=== PATIENT | female | born 1945 | race Caucasian/White ===

== ENCOUNTER 2016-11-25 09:11 | Outpatient (CLI) | payer MEDICARE ==
--- NOTE | 2016-11-25 11:01 | CT ---
CT OF THE LUMBAR SPINE: DATE: 02/26/16. COMPARISON: 09/05/13. HISTORY: Lumbar radiculopathy. TECHNIQUE: Serial axial CT imaging is obtained at 3 mm intervals from lower thoracic spine through the lower sa wilfrido without contrast. Coronal and sagittal reformatted imaging obtained. FINDINGS: Evaluation for central canal and/or neural foraminal stenosis is limited on routine CT. Incompletely imaged dorsal column stimulators are present, entering the central canal at the T12-L1 level. There is a stimulating lead associated with the S3 neural foramen on the left, incompletely imaged as well. Pedicle screws are present bilaterally at L3, L4, L5, and S1 with vertically oriented interlocking r ods. The bilateral pedicle screws demonstrate no evidence for a fracture. The pedicle screw at L3 on the left overlies the cortical bone and approaches the inferior margin of the intervertebral disk. The re is no lucency adjacent to any of the pedicle screws. No significant anterolisthesis or retrolisthesis is noted. There is mild lumbar dextroscoliosis valentina tered at the L3 level. T12-L1: There is disk space narrowing, primarily right-sided. No osseous cause of significant cent ral canal or neural foraminal stenosis. L1-2: There is disk space narrowing, degenerative end plate change, and anterior osteophyte formati on. Mild posterior osteophyte noted. Mild facet hypertrophy noted on the left. There is moderate facet hypertrophy on the right. Osteophyte encroachment on the right neural foramen causes a modera te degree of right neural foraminal stenosis. L2-3: There is disk space narrowing and disk desiccation. There is a disk-osteophyte complex causi ng at least moderate central canal stenosis. Bilateral facet hypertrophy present. No significant r ight neural foraminal stenosis. At least mild left neural foraminal stenosis. L3-4: There is disk space narrowing. There is partial facet joint fusion bilaterally. Mild bilate ral neural foraminal stenosis suspected, left greater than right. No significant central canal sten osis. L4-5: Intervertebral disk device present. There is facet joint fusion bilaterally. Mild bilateral neural foraminal stenosis suspected, left greater than right. Bilateral laminectomy changes are no petra. No osseous cause of significant central canal stenosis. L5-S1: Bilateral facet hypertrophy and partial facet joint fusion. No significant central canal or neural foraminal stenosis on the basis of an osseous cause. Bilateral laminectomy change present. There is scattered atherosclerotic calcification of the abdominal aorta and its branches. No acute fracture. IMPRESSION: Multilevel postoperative and degenerative change as detailed above. Evaluation for central canal an d/or neural foraminal stenosis is suboptimal on the basis of routine CT imaging. If clinically vincent anted, evaluation for central canal and/or neural foraminal stenosis could be better assessed via my elogram. POS: [facility]
== END 2016-11-25 09:12 | disposition home or self-care (01) ==
LOC: TBSIIMAG 09:11
PROVIDERS: ATTEND Neurological Surgery
DX: M47.26 Other spondylosis with radiculopathy, lumbar region (principal); Z98.890 Other specified postprocedural states
CPT/HCPCS: 72131

== ENCOUNTER 2016-12-16 13:09 | Outpatient (CLI) | payer MEDICARE ==
--- NOTE | 2016-12-16 17:06 | RAD ---
3 VIEW LUMBAR SPINE RADIOGRAPH SERIES: (3 LATERAL VIEWS PROVIDED) Date: 12/16/16 INDICATION: Lumbar radiculopathy. FINDINGS: Postoperative fusion spans the L3 through S1 segment without obvious hardware complication. No obvio us malalignment on the three provided lateral views. Flexion and extension are performed, which are distorted by component of patient motion. No obvious translational motion identified, although evalu ation is markedly limited on these views. IMPRESSION: Lateral views of the lumbar spine revealing no obvious malalignment by neutral positioning. Flexion/ extension views are limited due to details discussed above. POS: [facility]
== END 2016-12-16 13:10 | disposition home or self-care (01) ==
LOC: TBSIIMAG 13:09
PROVIDERS: ATTEND Neurological Surgery
DX: M54.16 Radiculopathy, lumbar region (principal)
CPT/HCPCS: 72100

== ENCOUNTER 2017-04-18 08:04 | Outpatient (CLI) | payer MEDICARE | END 2017-04-18 08:05 | disposition home or self-care (01) | LOC: BICMAMMO 08:04 | PROVIDERS: ATTEND Family Medicine | DX: Z13.820 Encounter for screening for osteoporosis (principal); Z78.0 Asymptomatic menopausal state; M85.80 Other specified disorders of bone density and structure, unspecified site | CPT/HCPCS: 77080 ==

== ENCOUNTER 2017-07-10 23:25 | Inpatient (IN) | payer MEDICARE ==
[2017-07-11] MEDS ORDERED: HYDROcodone/Acetaminophen 5/325 mg Tablet ONE (00:03)
[2017-07-11 00:24] LABS: #Basophils 0.1 thou/uL (0.0-0.2); #Eosinphils 0.2 thou/uL (0.0-0.7); #Lymphocytes 1.1 thou/uL (1.20-3.40); #Monocytes 0.9 thou/uL (0.11-0.59); #Neutrophils 4.9 thou/uL (1.40-6.50); %Basophils 1.2 % (0.0-1.0); %Eosinophils 2.5 % (0.0-10.0); %Lymphocytes 15.2 % (21.0-51.0); %Monocytes 12.5 % (0.0-10.0); %Neutrophils 68.6 % (42.0-75.0); Hemoglobin 13.2 g/dL (12.0-16.0); Mean Corpuscular HGB CONC 32.8 g/dL (32.0-36.0); Mean Corpuscular Volume 85.3 fl (81.0-99.0); Mean Platelet Volume 6.2 fL (7.4-10.4); Platelet Count 245 thou/uL (130-400); RBC Distribution Width 14.1 % (11.5-14.5); Red Blood Cell (RBC) Count 4.72 mill/uL (4.20-5.40); White Blood Cell (WBC) Count 7.2 thou/uL (4.8-10.8)
[2017-07-11 00:40] LABS: ALT (SGPT) 24 U/L (8-55); AST (SGOT) 25 U/L (5-34); Albumin 4.4 g/dL (3.4-4.8); Alkaline Phosphatase 59 U/L (40-150); Anion Gap 14 mmol/L (10-20); BUN (Urea Nitrogen) 15 mg/dL (9.8-20.1); Calc. Creatinine Clearance 0 mL/min (70-130); Calcium 9.9 mg/dL (7.8-10.44); Carbon Dioxide 25 mmol/L (23-31); Chloride 101 mmol/L (98-107); Estimated GFR-MDRD 82; Globulin 3.1 g/dL (2.4-3.5); Glucose 122 mg/dL (80-115); Potassium 4.3 mmol/L (3.5-5.1); Protein, Total 7.5 g/dL (6.0-8.3); Sodium 136 mmol/L (136-145)
[2017-07-11] MEDS ORDERED: Clindamycin/D5W 600 mg/50 ml Premix Bag ONE (03:19)
[2017-07-11] MEDS ORDERED: Morphine 5 MG/ML SYRINGE ONE (03:52)
[2017-07-11] MEDS ORDERED: Ondansetron HCl/PF 4 MG/2 ML Vial IVP PRN ×2 (04:53→07:15)
[2017-07-11] MEDS ORDERED: Acetaminophen 325 MG TAB PO PRN ×2 (04:53→07:15)
[2017-07-11] MEDS ORDERED: Ondansetron ODT 4 MG TAB SL PRN (04:53)
[2017-07-11 05:14] VITALS: BMI 25.7
[2017-07-11] MEDS ORDERED: Senokot 8.6 MG TAB PO PRN (07:15)
[2017-07-11] MEDS ORDERED: Mag-Al 1200 mg/1200 mg/30 ML UDCUP PO PRN (07:15)
[2017-07-11] MEDS ORDERED: Eucerin (Mineral Oil/Petrolatum,White) 30 gm Jar TOP PRN (07:15)
[2017-07-11] MEDS ORDERED: Sodium Chloride 0.65% Nasal 44 ML BOT EA NARE PRN (07:15)
[2017-07-11] MEDS ORDERED: Loperamide HCl 2 MG CAP PO PRN (07:15)
[2017-07-11] MEDS ORDERED: Loratadine 10 MG TAB PO PRN (07:15)
[2017-07-11] MEDS ORDERED: Zolpidem Tartrate 5 MG TAB PO PRN (07:15)
[2017-07-11] MEDS ORDERED: Chloraseptic Spray 180 ml Bottle PO PRN (07:15)
[2017-07-11] MEDS ORDERED: Ondansetron ODT 4 MG TAB PO PRN (07:15)
[2017-07-11] MEDS ORDERED: hydrALAZINE 20 MG/ML VIAL SLOW IVP PRN (07:15)
[2017-07-11] MEDS ORDERED: Milk Of Magnesia 30 ML UDCUP PO PRN (07:15)
[2017-07-11] MEDS ORDERED: Artificial Tears 18 DROP/0.9 ML EA EYE PRN (07:15)
[2017-07-11] MEDS ORDERED: Diabetic Tussin 200 MG/10 ML UDCUP PO PRN (07:15)
[2017-07-11] MEDS ORDERED: Morphine 4 MG/ML Carpuject SLOW IVP PRN (07:17)
[2017-07-11] MEDS: Enoxaparin Sodium 40 MG/0.4 ML SYRINGE SC SCH (08:18)
[2017-07-11] MEDS: Famotidine 20 MG TAB PO SCH ×2 (08:19→20:30)
[2017-07-11] MEDS: Saccharomyces boulardii 250 MG CAP PO SCH (08:19)
[2017-07-11] MEDS: Morphine 4 MG/ML VIAL IV PRN ×3 (09:26→18:19)
--- NOTE | 2017-07-11 09:39 | RAD ---
RIGHT WRIST THREE VIEWS: History: Pain, trauma. Comparison: None. FINDINGS: There are chronic changes involving the carpal bones. Possible remote injury to the triquetrum. An ac karl fracture is not appreciated. There are extensive degenerative changes involving the interphalange al joint spaces with gull-wing deformity. Subluxation of the third metacarpal phalangeal joint space is suspected. Subluxation of the first carpal metacarpal joint space is also suspected. IMPRESSION: No post-traumatic change. Chronic changes as above. POS: [facility]
[2017-07-11] MEDS: Clindamycin/D5W 600 MG in Premix Bag 1 BAG IVPB SCH ×2 (11:23→17:42)
--- NOTE | 2017-07-11 11:26 | HP ---
PRIMARY CARE PHYSICIAN: Sebastien Tuttle M.D. REASON FOR ADMISSION: Right hand cellulitis. HISTORY OF PRESENT ILLNESS: A 71-year-old female who has past medical history of colitis and dyslipidemia, who went to [facility] Emergency Room with complaint of her right hand and wrist pain. The patient reports that about a week ago, she had mechanical fall, and at that time, she had a minor injury to right hand. Subsequently, the patient noticed that for the last couple of days, she was experiencing erythema, redness and swelling on the right hand. She was also having fever in the emergency room. The patient was having throbbing pain in the right hand. The patient was clinically diagnosed with a cellulitis of right hand. There was no fluctuance or any abscess. The patient was given vancomycin, clindamycin, morphine, and [place] at emergency room. Subsequently, this patient was transferred to our hospital for admission. When she arrived to our hospital, at that time, she was admitted as a full admission. When I saw this patient in the morning, the patient was feeling better. Her pain is a little bit reduced and her swelling and erythema is also improving. The patient denies any UTI symptoms. She denies any constipation, diarrhea, melena or hematochezia. She denies any chest pain or palpitation. She denies any nausea or vomiting. REVIEW OF SYSTEMS: Please see my HPI for pertinent positive and negative. All other review of system reviewed and negative except as mentioned in the HPI: Constitutional: Weight loss or gain, ability to conduct usual activities. Skin: Rash, itching. Eyes: Double vision, pain. ENT/Mouth: Nose bleeding, neck stiffness, pain, tenderness. Cardiovascular: Palpitations, dyspnea on exertion, orthopnea. Respiratory: Shortness of breath, wheezing, cough, hemoptysis, fever or night sweats. Gastrointestinal: Poor appetite, abdominal pain, heartburn, nausea, vomiting, constipation, or diarrhea. Genitourinary: Urgency, frequency, dysuria, nocturia. Musculoskeletal: Pain, swelling. Neurologic/Psychiatric: Anxiety, depression. Allergy/Immunologic: Skin rash, bleeding tendency. PAST MEDICAL HISTORY: Osteoarthritis; dyslipidemia; obstructive sleep apnea, on CPAP; inflammatory bowel disease; glaucoma; chronic pain disorder. PAST SURGICAL HISTORY: Bilateral total knee replacement, back surgery, neck surgery, hand surgery, trigger finger release, spinal cord nerve stimulator placement, bilateral rotator cuff repair. PAST PSYCHIATRIC HISTORY: Reviewed and negative. FAMILY HISTORY: No strong family history of premature coronary artery disease, stroke or cancer. ALLERGIES: AMOXICILLIN, ERYTHROMYCIN. CURRENT HOME MEDICATIONS: Brimonidine tartrate timolol ophthalmic drops b.i.d. , folic acid 1 mg daily, Lotemax 1 drop b.i.d. Lialda 1.2 grams p.o. daily, mirabegron 50 mg p.o. daily, Zocor 40 mg p.o. at bedtime. EMERGENCY ROOM COURSE: The patient was given vancomycin, clindamycin, morphine , and [place]. SOCIAL HISTORY: The patient lives at home. No history of tobacco, alcohol or illicit drug abuse. PHYSICAL EXAMINATION: VITAL SIGNS: On arrival, blood pressure 128/90, pulse 79, respiratory rate 18, temperature 100.0, saturation 100% on room air, weight 78 kilograms. GENERAL: The patient is currently alert, awake, no acute distress. HEAD: Normocephalic, atraumatic. EYES: Pupils round, reactive to light. Extraocular muscle intact. ENT: Oropharynx within normal limits. Moist mucous membranes. No oral lesion , no pharyngeal erythema, no exudate. NECK: Supple, no JVD, no thyromegaly, no carotid bruit, no jugular venous distention. LUNGS: Clear to auscultation without any rhonchi or rales. CARDIAC: S1, S2 regular. No murmur, no gallop, no rub. ABDOMEN: Soft, bowel sounds present, nontender, nondistended. No organomegaly , no mass, no suprapubic tenderness. BACK: Unremarkable. No CVA tenderness. EXTREMITIES: Upper extremity: The patient does have mild erythema of right upper extremity, mild swelling noted. Good pulsation. No abscess. No open wound. Range of motion of all fingers are normal. The patient does have osteoarthritic changes. Lower extremity: No edema. Good peripheral pulsation. SKIN: No skin rash other than cellulitis of right upper extremity. NEUROLOGIC: Nonfocal examination. The patient is moving all 4 limbs. PSYCHIATRIC: Normal affect. HEMATOLOGIC: No lymphadenopathy. SIGNIFICANT LABORATORY DATA: X-ray of hand, no acute fracture or dislocation or inflammatory changes. CBC: WBC 7.2, hemoglobin 13.2, platelet 245. ESR 36. BMP: Sodium 136, potassium 4.3, chloride 101, carbon dioxide 25, anion gap 14, BUN 15, creatinine 0.71, glucose 122, calcium 9.9. Lactic acid 1.1. LFT: AST 25, ALT 24, alkaline phosphatase 59, albumin 4.4. CRP 2.28. ASSESSMENT AND PLAN: 1. Acute right upper extremity (right hand and right wrist cellulitis without abscess). At this point, the patient is already admitted to medical floor. We will continue with IV antibiotic therapy with vancomycin and clindamycin. We will provide probiotics. We will control her pain with [place] and morphine p.r.n. basis. The patient already has clinical improvement with IV antibiotic therapy. We will continue IV antibiotic therapy today and if we have continuous good response with IV antibiotic therapy and her pain is well controlled, then we will consider discharge soon. 2. Obstructive sleep apnea. The patient can use her home CPAP machine while in hospital as well. 3. Glaucoma. We will continue brimonidine tartrate timolol ophthalmic drops and Lotemax ophthalmic drops each eye b.i.d. as per home dosage. 4. Ulcerative colitis. We will continue Lialda 1.2 grams p.o. daily. 5. Dyslipidemia. We will continue Zocor 40 mg p.o. at bedtime. 6. Deep venous thrombosis prophylaxis. Lovenox 40 mg subcu daily. 7. Gastrointestinal prophylaxis, Pepcid 20 mg p.o. b.i.d. 8. Code status: The patient is FULL CODE. Patient does not have any surrogate decision maker. Disposition plan based on clinical course. We are expecting patient's stay in hospital 24-48 hours. Plan of care discussed with the patient in detail. ATIYA
[2017-07-11] MEDS: HYDROcodone/Acetaminophen 10/325 mg Tablet PO PRN ×2 (16:39→20:29)
[2017-07-11] MEDS: Atorvastatin Calcium 20 MG TAB PO SCH (20:30)
[2017-07-11] MEDS: Timolol 0.5% Ophth Soln 5 ml Bottle EA EYE SCH (20:32)
[2017-07-11] MEDS: Brimonidine Tartrate 0.2% Ophth Soln 5 ml Bottle EA EYE SCH (20:33)
[2017-07-11] MEDS: Loteprednol Etabonate 0.5% Ophth Suspension 5 ml Bottle EA EYE SCH (20:33)
[2017-07-12] MEDS: Clindamycin/D5W 600 MG in Premix Bag 1 BAG IVPB SCH ×5 (00:03→23:14)
[2017-07-12] MEDS: Vancomycin HCl 1.5 GM in Sodium Chloride 0.9% 250 ML 300 ML IVPB SCH (03:27)
[2017-07-12 05:07] LABS: Anion Gap 13 mmol/L (10-20); BUN (Urea Nitrogen) 11 mg/dL (9.8-20.1); Calc. Creatinine Clearance 110 mL/min (70-130); Calcium 9.1 mg/dL (7.8-10.44); Carbon Dioxide 22 mmol/L (23-31); Chloride 104 mmol/L (98-107); Estimated GFR-MDRD Greater than 90; Glucose 96 mg/dL (80-115); Potassium 3.8 mmol/L (3.5-5.1); Sodium 135 mmol/L (136-145)
[2017-07-12] MEDS: Morphine 4 MG/ML VIAL IV PRN ×5 (05:57→23:16)
[2017-07-12 06:44] LABS: Hemoglobin 12.2 g/dL (12.0-16.0); Mean Corpuscular HGB CONC 31.4 g/dL (32.0-36.0); Mean Corpuscular Hemoglobin 27.5 pg (27.0-31.0); Mean Corpuscular Volume 87.4 fl (81.0-99.0); Mean Platelet Volume 7.5 fL (7.4-10.4); Platelet Count 195 thou/uL (130-400); RBC Distribution Width 14.2 % (11.5-14.5); Red Blood Cell (RBC) Count 4.46 mill/uL (4.20-5.40); White Blood Cell (WBC) Count 7.7 thou/uL (4.8-10.8)
[2017-07-12] MEDS ORDERED: Mesalamine [Lialda] 1.2 GM PO SCH (09:00)
[2017-07-12] MEDS: Famotidine 20 MG TAB PO SCH ×2 (09:22→20:21)
[2017-07-12] MEDS: Loteprednol Etabonate 0.5% Ophth Suspension 5 ml Bottle EA EYE SCH ×2 (09:22→20:22)
[2017-07-12] MEDS: Brimonidine Tartrate 0.2% Ophth Soln 5 ml Bottle EA EYE SCH ×2 (09:22→20:22)
[2017-07-12] MEDS: Timolol 0.5% Ophth Soln 5 ml Bottle EA EYE SCH ×2 (09:23→20:22)
[2017-07-12] MEDS: Saccharomyces boulardii 250 MG CAP PO SCH (09:24)
[2017-07-12] MEDS: Enoxaparin Sodium 40 MG/0.4 ML SYRINGE SC SCH (09:24)
[2017-07-12] MEDS: Folic Acid 1 MG TAB PO SCH (09:24)
--- NOTE | 2017-07-12 09:40 | PDOC.PN ---
- Subjective Encounter Start Date: 07/12/17 Encounter Start Time: 08:40 -: old records requested/rev Patient seen and examined hand cellulitis, today she feels more swelling over wrist, more pain, No overnight events - Objective Resuscitation Status: Resuscitation Status FULL:Full Resuscitation MAR Reviewed: Yes Vital Signs & Weight: Vital Signs (12 hours) Temp Pulse Resp BP BP Pulse Ox 07/12/17 07:12 97.8 F 68 16 137/83 95 07/12/17 05:07 99.9 F H 66 20 126/64 98 07/12/17 00:00 98.7 F 63 20 109/61 93 L I&O: 07/11/17 07/12/17 07/13/17 06:59 06:59 06:59 Intake Total 1550 Balance 1550 Result Diagrams: 07/12/17 04:33 07/12/17 04:33 Phys Exam - Physical Examination Constitutional: NAD HEENT: PERRLA, moist MMs, sclera anicteric Neck: no JVD, supple Respiratory: no wheezing, no rales, no rhonchi Cardiovascular: RRR, no significant murmur, no rub Gastrointestinal: soft, non-tender, no distention, positive bowel sounds Musculoskeletal: no edema, pulses present right wrist swelling and tenderness Neurological: non-focal, normal sensation, moves all 4 limbs Psychiatric: normal affect, A&O x 3 Skin: no rash, normal turgor Dx/Plan (1) Cellulitis of right hand Code(s): L03.113 - CELLULITIS OF RIGHT UPPER LIMB Status: Acute (2) Dyslipidemia Code(s): E78.5 - HYPERLIPIDEMIA, UNSPECIFIED Status: Chronic (3) Glaucoma Code(s): H40.9 - UNSPECIFIED GLAUCOMA Status: Chronic (4) CHRIS (obstructive sleep apnea) Code(s): G47.33 - OBSTRUCTIVE SLEEP APNEA (ADULT) (PEDIATRIC) Status: Chronic (5) Ulcerative colitis Code(s): K51.90 - ULCERATIVE COLITIS, UNSPECIFIED, WITHOUT COMPLICATIONS Status: Chronic - Plan cont current plan of care, continue antibiotics * will check uric acid, * will add toradol for pain * will give indomethacin BID for suspected gout * medication reviewed as below * symptomatic treatment * continue empiric rocephin and vancomycin. Review of Systems - Review of Systems Constitutional: negative: fever, chills, sweats, weakness, malaise, other Eyes: negative: Pain, Vision Change, Conjunctivae Inflammation, Eyelid Inflammation, Redness, Other ENT: negative: Ear Pain, Ear Discharge, Nose Pain, Nose Discharge, Nose Congestion, Mouth Pain, Mouth Swelling, Throat Pain, Throat Swelling, Other Respiratory: negative: Cough, Dry, Shortness of Breath, Hemoptysis, SOB with Excertion, Pleuritic Pain, Sputum, Wheezing Cardiovascular: negative: chest pain, palpitations, orthopnea, paroxysmal nocturnal dyspnea, edema, light headedness, other Gastrointestinal: negative: Nausea, Vomiting, Abdominal Pain, Diarrhea, Constipation, Melena, Hematochezia, Other Genitourinary: negative: Dysuria, Frequency, Incontinence, Hematuria, Retention , Other Musculoskeletal: Hand Pain. negative: Neck Pain, Shoulder Pain, Arm Pain, Back Pain, Leg Pain, Foot Pain, Other Skin: negative: Rash, Lesions, Yakov, Bruising, Other - Medications/Allergies Allergies/Adverse Reactions: Allergies Allergy/AdvReac Type Severity Reaction Status Date / Time amoxicillin [Amoxicillin] Allergy Severe Anaphylaxis Verified 06/07/13 09:56 erythromycin base Allergy Severe Anaphylaxis Unverified 06/13/13 10:42 [Erythromycin Base] Medications: Current Medications Acetaminophen (Tylenol) 650 mg PO Q4H PRN PRN Reason: Headache/Fever or Pain Hydrocodone Bitart/Acetaminophen ([place] 10/325) 1 tab PO Q4H PRN PRN Reason: Moderate Pain (4-6) Last Admin: 07/11/17 20:29 Dose: 1 tab Al Hydroxide/Mg Hydroxide (Maalox) 30 ml PO Q6H PRN PRN Reason: Heartburn or Indigestion Artificial Tears (Tears Naturale) 0 drop EA EYE PRN PRN PRN Reason: Dry Eyes Atorvastatin Calcium (Lipitor) 20 mg PO HS [facility] Last Admin: 07/11/17 20:30 Dose: 20 mg Brimonidine Tartrate (Alphagan 0.2% Ophth Soln) 1 drop EA EYE BID [facility] Last Admin: 07/12/17 09:22 Dose: Not Given Enoxaparin Sodium (Lovenox) 40 mg SC 0900 [facility] Last Admin: 07/12/17 09:24 Dose: 40 mg Famotidine (Pepcid) 20 mg PO BID [facility] Last Admin: 07/12/17 09:22 Dose: Not Given Folic Acid (Folvite) 1 mg PO DAILY [facility] Last Admin: 07/12/17 09:24 Dose: Not Given Guaifenesin (Robitussin Sf) 200 mg PO Q4H PRN PRN Reason: Cough Hydralazine HCl (Apresoline) 10 mg SLOW IVP Q4H PRN PRN Reason: Systolic BP > 180 Clindamycin Phosphate/Dextrose (600 mg/ Device) 50 mls @ 100 mls/hr IVPB Q6HR [facility] Last Admin: 07/12/17 05:57 Dose: 50 mls Vancomycin HCl 1.5 gm/ Sodium (Chloride) 300 mls @ 200 mls/hr IVPB 0300 [facility] Last Admin: 07/12/17 03:27 Dose: 300 mls Loperamide HCl (Imodium) 2 mg PO PRN PRN PRN Reason: Diarrhea/Loose Stools Loratadine (Claritin) 10 mg PO DAILYPRN PRN PRN Reason: Sinus Symptoms Loteprednol Etabonate (Lotemax 0.5% Ophth Suspension) 1 drop EA EYE BID [facility] Last Admin: 07/12/17 09:22 Dose: Not Given Magnesium Hydroxide (Milk Of Magnesium) 30 ml PO DAILYPRN PRN PRN Reason: Constipation Mineral Oil/White Petrolatum (Eucerin Cream) 0 gm TOP BIDPRN PRN PRN Reason: Dry Skin Mirabegron (Myrbetriq Er) 50 mg PO DAILY [facility] Last Admin: 07/12/17 09:23 Dose: Not Given Miscellaneous Medication (Pharmacy To Dose) 1 each IVPB ASDIR [facility] Morphine Sulfate (Morphine) 4 mg IV Q4H PRN PRN Reason: Pain Last Admin: 07/12/17 05:57 Dose: 4 mg Ondansetron HCl (Zofran Odt) 4 mg PO Q6H PRN PRN Reason: Nausea/Vomiting Ondansetron HCl (Zofran) 4 mg IVP Q6H PRN PRN Reason: Nausea/Vomiting Mesalamine [Lialda] (1.2 Gm) 0 each PO DAILY [facility] Phenol (Chloraseptic [place] 180 Ml Bot) 0 ml PO PRN PRN PRN Reason: Sore Throat Saccharomyces Boulardii (Florastor) 250 mg PO DAILY [facility] Last Admin: 07/12/17 09:24 Dose: 250 mg Senna (Senokot) 2 tab PO HSPRN PRN PRN Reason: Constipation Sodium Chloride ([place] Nasal [place] 0.65%) 0 ml EA NARE QIDPRN PRN PRN Reason: Nasal Congestion Sodium Chloride (Flush - Normal Saline) 10 ml IVF Q12HR [facility] Last Admin: 07/12/17 09:24 Dose: 10 ml Sodium Chloride (Flush - Normal Saline) 10 ml IVF PRN PRN PRN Reason: Saline Flush Timolol Maleate (Timoptic 0.5% Oph Soln) 1 drop EA EYE BID [facility] Last Admin: 07/12/17 09:23 Dose: Not Given Zolpidem Tartrate (Ambien) 5 mg PO HSPRN PRN PRN Reason: Insomnia
[2017-07-12 11:06] LABS: Band 1 % (5-11); Lymphocytes 20 % (21-51); MDiff Complete? YES; Monocytes 14 % (0-10); Neutrophil 55 % (42-75); PLT Morphology Comment Appears Adequate; Polychromasia SLIGHT = 2-3 cells (100X) (0-2/hpf); Reactive Lymphocytes 10 % (0-10)
[2017-07-12] MEDS: Ketorolac Tromethamine 30 MG/ML VIAL IVP PRN ×2 (12:09→20:39)
[2017-07-12] MEDS: Atorvastatin Calcium 20 MG TAB PO SCH (20:22)
[2017-07-13 02:37] LABS: Vancomycin, Trough 4.1 ug/mL
[2017-07-13] MEDS: Vancomycin HCl 1.5 GM in Sodium Chloride 0.9% 250 ML 300 ML IVPB SCH ×2 (03:01→14:48)
[2017-07-13] MEDS: Ketorolac Tromethamine 30 MG/ML VIAL IVP PRN ×2 (03:01→09:07)
[2017-07-13] MEDS: Clindamycin/D5W 600 MG in Premix Bag 1 BAG IVPB SCH ×3 (06:12→19:54)
[2017-07-13] MEDS: Morphine 4 MG/ML VIAL IV PRN (06:12)
[2017-07-13] MEDS: Folic Acid 1 MG TAB PO SCH (09:05)
[2017-07-13] MEDS: Brimonidine Tartrate 0.2% Ophth Soln 5 ml Bottle EA EYE SCH ×2 (09:05→20:42)
[2017-07-13] MEDS: Loteprednol Etabonate 0.5% Ophth Suspension 5 ml Bottle EA EYE SCH ×2 (09:05→20:44)
[2017-07-13] MEDS: Enoxaparin Sodium 40 MG/0.4 ML SYRINGE SC SCH (09:06)
[2017-07-13] MEDS: Timolol 0.5% Ophth Soln 5 ml Bottle EA EYE SCH ×2 (09:06→20:44)
[2017-07-13] MEDS: Famotidine 20 MG TAB PO SCH ×2 (09:06→20:42)
[2017-07-13] MEDS: Indomethacin 25 mg Capsule PO SCH ×2 (09:07→20:44)
[2017-07-13] MEDS: Saccharomyces boulardii 250 MG CAP PO SCH (09:07)
--- NOTE | 2017-07-13 11:02 | PDOC.PN ---
- Subjective Encounter Start Date: 07/13/17 Encounter Start Time: 09:10 Patient seen and examined. No new complaints. No overnight events she still can not make fist with left hand, has left hand swelling, pain is ok with toradol - Objective Resuscitation Status: Resuscitation Status FULL:Full Resuscitation MAR Reviewed: Yes Vital Signs & Weight: Vital Signs (12 hours) Temp Pulse Resp BP BP Pulse Ox 07/13/17 09:06 56 L 07/13/17 07:11 97.9 F 56 L 18 111/66 95 07/12/17 23:59 98.4 F 54 L 20 102/53 L 94 L I&O: 07/12/17 07/13/17 07/14/17 06:59 06:59 06:59 Intake Total 1550 950 Balance 1550 950 Result Diagrams: 07/12/17 04:33 07/12/17 04:33 Phys Exam - Physical Examination Constitutional: NAD HEENT: PERRLA, moist MMs, sclera anicteric Neck: no JVD, supple Respiratory: no wheezing, no rales, no rhonchi Cardiovascular: RRR, no significant murmur, no rub Gastrointestinal: soft, non-tender, no distention, positive bowel sounds Musculoskeletal: no edema, pulses present left hand dorsal aspect more swelling Neurological: non-focal, normal sensation, moves all 4 limbs Lymphatic: no nodes Psychiatric: normal affect, A&O x 3 Skin: no rash, normal turgor Dx/Plan (1) Cellulitis of right hand Code(s): L03.113 - CELLULITIS OF RIGHT UPPER LIMB Status: Acute (2) Dyslipidemia Code(s): E78.5 - HYPERLIPIDEMIA, UNSPECIFIED Status: Chronic (3) Glaucoma Code(s): H40.9 - UNSPECIFIED GLAUCOMA Status: Chronic (4) CHRIS (obstructive sleep apnea) Code(s): G47.33 - OBSTRUCTIVE SLEEP APNEA (ADULT) (PEDIATRIC) Status: Chronic (5) Ulcerative colitis Code(s): K51.90 - ULCERATIVE COLITIS, UNSPECIFIED, WITHOUT COMPLICATIONS Status: Chronic - Plan cont current plan of care, continue antibiotics * MRI not possible as she has neurostimulator * will consult hand surgeon for opinion, doubt need of surgical intervention * continue vancomycin and levaquin * medication reviewed as below * symptomatic treatment * pain controlled with toradol. Review of Systems - Review of Systems Eyes: negative: Pain, Vision Change, Conjunctivae Inflammation, Eyelid Inflammation, Redness, Other ENT: negative: Ear Pain, Ear Discharge, Nose Pain, Nose Discharge, Nose Congestion, Mouth Pain, Mouth Swelling, Throat Pain, Throat Swelling, Other Respiratory: negative: Cough, Dry, Shortness of Breath, Hemoptysis, SOB with Excertion, Pleuritic Pain, Sputum, Wheezing Cardiovascular: negative: chest pain, palpitations, orthopnea, paroxysmal nocturnal dyspnea, edema, light headedness, other Gastrointestinal: negative: Nausea, Vomiting, Abdominal Pain, Diarrhea, Constipation, Melena, Hematochezia, Other Genitourinary: negative: Dysuria, Frequency, Incontinence, Hematuria, Retention , Other Musculoskeletal: Hand Pain. negative: Neck Pain, Shoulder Pain, Arm Pain, Back Pain, Leg Pain, Foot Pain, Other Skin: negative: Rash, Lesions, Yakov, Bruising, Other - Medications/Allergies Allergies/Adverse Reactions: Allergies Allergy/AdvReac Type Severity Reaction Status Date / Time amoxicillin [Amoxicillin] Allergy Severe Anaphylaxis Verified 06/07/13 09:56 erythromycin base Allergy Severe Anaphylaxis Unverified 06/13/13 10:42 [Erythromycin Base] Medications: Current Medications Acetaminophen (Tylenol) 650 mg PO Q4H PRN PRN Reason: Headache/Fever or Pain Hydrocodone Bitart/Acetaminophen ([place] 10/325) 1 tab PO Q4H PRN PRN Reason: Moderate Pain (4-6) Last Admin: 07/11/17 20:29 Dose: 1 tab Al Hydroxide/Mg Hydroxide (Maalox) 30 ml PO Q6H PRN PRN Reason: Heartburn or Indigestion Artificial Tears (Tears Naturale) 0 drop EA EYE PRN PRN PRN Reason: Dry Eyes Atorvastatin Calcium (Lipitor) 20 mg PO [facility] Last Admin: 07/12/17 20:22 Dose: 20 mg Brimonidine Tartrate (Alphagan 0.2% Ophth Soln) 1 drop EA EYE BID [facility] Last Admin: 07/13/17 09:05 Dose: Not Given Enoxaparin Sodium (Lovenox) 40 mg SC 0900 [facility] Last Admin: 07/13/17 09:06 Dose: Not Given Famotidine (Pepcid) 20 mg PO BID [facility] Last Admin: 07/13/17 09:06 Dose: Not Given Folic Acid (Folvite) 1 mg PO DAILY [facility] Last Admin: 07/13/17 09:05 Dose: Not Given Guaifenesin (Robitussin Sf) 200 mg PO Q4H PRN PRN Reason: Cough Hydralazine HCl (Apresoline) 10 mg SLOW IVP Q4H PRN PRN Reason: Systolic BP > 180 Clindamycin Phosphate/Dextrose (600 mg/ Device) 50 mls @ 100 mls/hr IVPB Q6HR [facility] Last Admin: 07/13/17 06:12 Dose: 50 mls Vancomycin HCl 1.5 gm/ Sodium (Chloride) 300 mls @ 200 mls/hr IVPB 0300,1500 [facility] Indomethacin (Indocin) 50 mg PO BID [facility] Last Admin: 07/13/17 09:07 Dose: 50 mg Ketorolac Tromethamine (Toradol) 15 mg IVP Q6H PRN PRN Reason: Pain Stop: 07/17/17 09:39 Last Admin: 07/13/17 09:07 Dose: 15 mg Loperamide HCl (Imodium) 2 mg PO PRN PRN PRN Reason: Diarrhea/Loose Stools Loratadine (Claritin) 10 mg PO DAILYPRN PRN PRN Reason: Sinus Symptoms Loteprednol Etabonate (Lotemax 0.5% Ophth Suspension) 1 drop EA EYE BID [facility] Last Admin: 07/13/17 09:05 Dose: Not Given Magnesium Hydroxide (Milk Of Magnesium) 30 ml PO DAILYPRN PRN PRN Reason: Constipation Mineral Oil/White Petrolatum (Eucerin Cream) 0 gm TOP BIDPRN PRN PRN Reason: Dry Skin Mirabegron (Myrbetriq Er) 50 mg PO DAILY [facility] Last Admin: 07/13/17 09:05 Dose: Not Given Miscellaneous Medication (Pharmacy To Dose) 1 each IVPB ASDIR [facility] Morphine Sulfate (Morphine) 4 mg IV Q4H PRN PRN Reason: Pain Last Admin: 07/13/17 06:12 Dose: 4 mg Ondansetron HCl (Zofran Odt) 4 mg PO Q6H PRN PRN Reason: Nausea/Vomiting Last Admin: 07/13/17 09:56 Dose: 4 mg Ondansetron HCl (Zofran) 4 mg IVP Q6H PRN PRN Reason: Nausea/Vomiting Mesalamine [Lialda] (1.2 Gm) 0 each PO DAILY [facility] Phenol (Chloraseptic [place] 180 Ml Bot) 0 ml PO PRN PRN PRN Reason: Sore Throat Saccharomyces Boulardii (Florastor) 250 mg PO DAILY [facility] Last Admin: 07/13/17 09:07 Dose: Not Given Senna (Senokot) 2 tab PO HSPRN PRN PRN Reason: Constipation Sodium Chloride ([place] Nasal [place] 0.65%) 0 ml EA NARE QIDPRN PRN PRN Reason: Nasal Congestion Sodium Chloride (Flush - Normal Saline) 10 ml IVF Q12HR [facility] Last Admin: 07/13/17 09:07 Dose: 10 ml Sodium Chloride (Flush - Normal Saline) 10 ml IVF PRN PRN PRN Reason: Saline Flush Timolol Maleate (Timoptic 0.5% Oph Soln) 1 drop EA EYE BID [facility] Last Admin: 07/13/17 09:06 Dose: Not Given Zolpidem Tartrate (Ambien) 5 mg PO HSPRN PRN PRN Reason: Insomnia
[2017-07-13] MEDS ORDERED: PROPOFOL 200 MG/20 ML VIAL ONE (14:29)
[2017-07-13] MEDS ORDERED: Lidocaine 1% PF 5 ML VIAL ONE (14:29)
[2017-07-13] MEDS ORDERED: ePHEDrine/0.9% NaCl/PF SYRINGE 50 mg/10 ml ONE (14:29)
[2017-07-13] MEDS ORDERED: Ketorolac Tromethamine 30 MG/ML VIAL ONE (14:29)
[2017-07-13] MEDS ORDERED: Dexamethasone 20 MG/5 ML VIAL ONE (14:29)
[2017-07-13] MEDS ORDERED: Ondansetron HCl/PF 4 MG/2 ML Vial ONE (14:29)
--- NOTE | 2017-07-13 16:25 | ULT ---
SOFT TISSUE ULTRASOUND RIGHT HAND: 07/13/17 INDICATIONS: Area of redness and swelling dorsal right hand at the third MCP joint dorsally. FINDINGS/IMPRESSION: There is an hypoechoic collection at this location measuring 2 cm width by approximately 1 cm AP dime nsion. This suggests a complex partially fluid collection and would be consistent with a subcutaneous abscess. POS: [facility]
[2017-07-13] MEDS: Atorvastatin Calcium 20 MG TAB PO SCH (20:42)
[2017-07-13] MEDS ORDERED: Fentanyl 100 MCG/2 ML VIAL ONE (22:57)
[2017-07-13] MEDS ORDERED: Bupivacaine PF 0.5% 30 ML VIAL ONE (23:07)
[2017-07-13] MEDS ORDERED: Ondansetron HCl/PF 4 MG/2 ML Vial IVP PRN (23:43)
[2017-07-13] MEDS ORDERED: Morphine Sulfate 2 MG/ML SYRINGE SLOW IVP PRN (23:43)
[2017-07-13] MEDS ORDERED: Promethazine HCl 25 MG/ML VIAL SLOW IVP PRN (23:43)
[2017-07-13] MEDS ORDERED: Promethazine HCl 25 MG/ML VIAL IM PRN ×2 (23:43→23:53)
[2017-07-13] MEDS ORDERED: traMADol HCl 50 MG TAB PO PRN (23:55)
[2017-07-14] MEDS: Clindamycin/D5W 600 MG in Premix Bag 1 BAG IVPB SCH ×4 (00:22→17:47)
[2017-07-14] MEDS: Vancomycin HCl 1.5 GM in Sodium Chloride 0.9% 250 ML 300 ML IVPB SCH ×3 (02:43→15:19)
[2017-07-14] MEDS: Colchicine 0.6 MG TAB PO SCH ×2 (08:39→21:40)
[2017-07-14] MEDS: Saccharomyces boulardii 250 MG CAP PO SCH (08:39)
[2017-07-14] MEDS: Folic Acid 1 MG TAB PO SCH (08:39)
[2017-07-14] MEDS: Enoxaparin Sodium 40 MG/0.4 ML SYRINGE SC SCH (08:39)
[2017-07-14] MEDS: Indomethacin 25 mg Capsule PO SCH ×2 (08:49→21:41)
[2017-07-14] MEDS: Brimonidine Tartrate 0.2% Ophth Soln 5 ml Bottle EA EYE SCH ×2 (08:50→21:40)
[2017-07-14] MEDS: Loteprednol Etabonate 0.5% Ophth Suspension 5 ml Bottle EA EYE SCH ×2 (08:50→21:41)
[2017-07-14] MEDS: Timolol 0.5% Ophth Soln 5 ml Bottle EA EYE SCH ×2 (08:50→21:42)
[2017-07-14] MEDS: Famotidine 20 MG TAB PO SCH ×2 (08:55→21:41)
[2017-07-14] MEDS ORDERED: Vancomycin HCl 1 GM in Premix Bag 1 BAG IVPB SCH (09:00)
--- NOTE | 2017-07-14 10:58 | PDOC.PN ---
- Subjective Encounter Start Date: 07/14/17 Encounter Start Time: 09:30 Patient seen and examined. No new complaints. No overnight events she had surgery for abscess yesterday over right hand - Objective Resuscitation Status: Resuscitation Status FULL:Full Resuscitation MAR Reviewed: Yes Vital Signs & Weight: Vital Signs (12 hours) Temp Pulse Resp BP Pulse Ox 07/14/17 08:50 69 07/14/17 08:03 97.4 F L 69 18 135/75 97 07/14/17 08:00 97.2 F L 69 18 96 07/14/17 05:32 97.6 F 52 L 18 134/78 96 07/14/17 00:00 98.6 F 61 18 130/78 98 I&O: 07/13/17 07/14/17 07/15/17 06:59 06:59 06:59 Intake Total 950 2150 360 Balance 950 2150 360 Result Diagrams: 07/12/17 04:33 07/12/17 04:33 Radiology Reviewed by me: Yes (us hand) Phys Exam - Physical Examination Constitutional: NAD HEENT: PERRLA, moist MMs, sclera anicteric Neck: no JVD, supple Respiratory: no wheezing, no rales, no rhonchi Cardiovascular: RRR, no significant murmur, no rub Gastrointestinal: soft, non-tender, no distention, positive bowel sounds Musculoskeletal: no edema, pulses present right hand with dressing Neurological: non-focal, normal sensation, moves all 4 limbs Lymphatic: no nodes Psychiatric: normal affect, A&O x 3 Skin: no rash, normal turgor Dx/Plan (1) Cellulitis of right hand Code(s): L03.113 - CELLULITIS OF RIGHT UPPER LIMB Status: Acute Comment: with abscess s/p I & D (2) Dyslipidemia Code(s): E78.5 - HYPERLIPIDEMIA, UNSPECIFIED Status: Chronic (3) Glaucoma Code(s): H40.9 - UNSPECIFIED GLAUCOMA Status: Chronic (4) CHRIS (obstructive sleep apnea) Code(s): G47.33 - OBSTRUCTIVE SLEEP APNEA (ADULT) (PEDIATRIC) Status: Chronic (5) Ulcerative colitis Code(s): K51.90 - ULCERATIVE COLITIS, UNSPECIFIED, WITHOUT COMPLICATIONS Status: Chronic - Plan cont current plan of care, continue antibiotics * continue wound care * pain controlled * continue clindamycin and vancomycin * hand surgeon following * follow culture * medication reviewed as below * symptomatic treatment. Review of Systems - Review of Systems Constitutional: negative: fever, chills, sweats, weakness, malaise, other Eyes: negative: Pain, Vision Change, Conjunctivae Inflammation, Eyelid Inflammation, Redness, Other ENT: negative: Ear Pain, Ear Discharge, Nose Pain, Nose Discharge, Nose Congestion, Mouth Pain, Mouth Swelling, Throat Pain, Throat Swelling, Other Respiratory: negative: Cough, Dry, Shortness of Breath, Hemoptysis, SOB with Excertion, Pleuritic Pain, Sputum, Wheezing Cardiovascular: negative: chest pain, palpitations, orthopnea, paroxysmal nocturnal dyspnea, edema, light headedness, other Gastrointestinal: negative: Nausea, Vomiting, Abdominal Pain, Diarrhea, Constipation, Melena, Hematochezia, Other Genitourinary: negative: Dysuria, Frequency, Incontinence, Hematuria, Retention , Other Musculoskeletal: Hand Pain. negative: Neck Pain, Shoulder Pain, Arm Pain, Back Pain, Leg Pain, Foot Pain, Other - Medications/Allergies Allergies/Adverse Reactions: Allergies Allergy/AdvReac Type Severity Reaction Status Date / Time amoxicillin [Amoxicillin] Allergy Severe Anaphylaxis Verified 06/07/13 09:56 erythromycin base Allergy Severe Anaphylaxis Unverified 06/13/13 10:42 [Erythromycin Base] Medications: Current Medications Acetaminophen (Tylenol) 650 mg PO Q4H PRN PRN Reason: Headache/Fever or Pain Hydrocodone Bitart/Acetaminophen ([place] 10/325) 1 tab PO Q4H PRN PRN Reason: Moderate Pain (4-6) Last Admin: 07/11/17 20:29 Dose: 1 tab Al Hydroxide/Mg Hydroxide (Maalox) 30 ml PO Q6H PRN PRN Reason: Heartburn or Indigestion Last Admin: 07/13/17 14:47 Dose: 30 ml Artificial Tears (Tears Naturale) 0 drop EA EYE PRN PRN PRN Reason: Dry Eyes Atorvastatin Calcium (Lipitor) 20 mg PO [facility] Last Admin: 07/13/17 20:42 Dose: Not Given Brimonidine Tartrate (Alphagan 0.2% Ophth Soln) 1 drop EA EYE BID [facility] Last Admin: 07/14/17 08:50 Dose: Not Given Colchicine (Colcrys) 0.6 mg PO BID [facility] Last Admin: 07/14/17 08:39 Dose: 0.6 mg Enoxaparin Sodium (Lovenox) 40 mg SC 0900 [facility] Last Admin: 07/14/17 08:39 Dose: 40 mg Famotidine (Pepcid) 20 mg PO BID [facility] Last Admin: 07/14/17 08:55 Dose: 20 mg Folic Acid (Folvite) 1 mg PO DAILY [facility] Last Admin: 07/14/17 08:39 Dose: 1 mg Guaifenesin (Robitussin Sf) 200 mg PO Q4H PRN PRN Reason: Cough Hydralazine HCl (Apresoline) 10 mg SLOW IVP Q4H PRN PRN Reason: Systolic BP > 180 Clindamycin Phosphate/Dextrose (600 mg/ Device) 50 mls @ 100 mls/hr IVPB Q6HR [facility] Last Admin: 07/14/17 05:29 Dose: 50 mls Vancomycin HCl 1.5 gm/ Sodium (Chloride) 300 mls @ 200 mls/hr IVPB 0300,1500 [facility] Last Admin: 07/14/17 02:43 Dose: 300 mls Vancomycin HCl 1 gm/ Device 200 mls @ 200 mls/hr IVPB Q12HR [facility] Stop: 07/15/17 23:59 Last Admin: 07/14/17 08:40 Dose: 200 mls Indomethacin (Indocin) 50 mg PO BID [facility] Last Admin: 07/14/17 08:49 Dose: 50 mg Ketorolac Tromethamine (Toradol) 15 mg IVP Q6H PRN PRN Reason: Pain Stop: 07/17/17 09:39 Last Admin: 07/13/17 09:07 Dose: 15 mg Loperamide HCl (Imodium) 2 mg PO PRN PRN PRN Reason: Diarrhea/Loose Stools Loratadine (Claritin) 10 mg PO DAILYPRN PRN PRN Reason: Sinus Symptoms Loteprednol Etabonate (Lotemax 0.5% Ophth Suspension) 1 drop EA EYE BID [facility] Last Admin: 07/14/17 08:50 Dose: Not Given Magnesium Hydroxide (Milk Of Magnesium) 30 ml PO DAILYPRN PRN PRN Reason: Constipation Meperidine HCl (Demerol) 50 mg IM Q4H PRN PRN Reason: Pain Mineral Oil/White Petrolatum (Eucerin Cream) 0 gm TOP BIDPRN PRN PRN Reason: Dry Skin Mirabegron (Myrbetriq Er) 50 mg PO DAILY [facility] Last Admin: 07/14/17 08:49 Dose: 50 mg Miscellaneous Medication (Pharmacy To Dose) 1 each IVPB ASDIR [facility] Morphine Sulfate (Morphine) 4 mg IV Q4H PRN PRN Reason: Pain Last Admin: 07/13/17 06:12 Dose: 4 mg Ondansetron HCl (Zofran Odt) 4 mg PO Q6H PRN PRN Reason: Nausea/Vomiting Last Admin: 07/13/17 09:56 Dose: 4 mg Ondansetron HCl (Zofran) 4 mg IVP Q6H PRN PRN Reason: Nausea/Vomiting Mesalamine [Lialda] (1.2 Gm) 0 each PO DAILY [facility] Phenol (Chloraseptic [place] 180 Ml Bot) 0 ml PO PRN PRN PRN Reason: Sore Throat Promethazine HCl (Phenergan) 25 mg IM Q4H PRN PRN Reason: Pain Saccharomyces Boulardii (Florastor) 250 mg PO DAILY [facility] Last Admin: 07/14/17 08:39 Dose: 250 mg Senna (Senokot) 2 tab PO HSPRN PRN PRN Reason: Constipation Sodium Chloride (Stokes Nasal [place] 0.65%) 0 ml EA NARE QIDPRN PRN PRN Reason: Nasal Congestion Sodium Chloride (Flush - Normal Saline) 10 ml IVF Q12HR [facility] Last Admin: 07/14/17 08:40 Dose: 10 ml Sodium Chloride (Flush - Normal Saline) 10 ml IVF PRN PRN PRN Reason: Saline Flush Timolol Maleate (Timoptic 0.5% Oph Soln) 1 drop EA EYE BID [facility] Last Admin: 07/14/17 08:50 Dose: Not Given Tramadol HCl (Ultram) 50 mg PO Q6H PRN PRN Reason: Pain Zolpidem Tartrate (Ambien) 5 mg PO HSPRN PRN PRN Reason: Insomnia Last Admin: 07/14/17 02:50 Dose: 5 mg
--- NOTE | 2017-07-14 13:14 | OP ---
DATE OF PROCEDURE: 07/13/2017 PREOPERATIVE DIAGNOSIS: Abscess intra-articular long finger metacarpophalangeal joint with possible horseshoe connection to both sides. POSTOPERATIVE DIAGNOSES AND FINDINGS: 1. Completely filled metacarpophalangeal joint with fluid, tense cover. 2. Erosion, chondral surface near complete loss metacarpal head with osteophyte formation, minimal-t o-mild loss distal portion of the same joint. 3. Inflammatory arthritis. PROCEDURES PERFORMED: 1. Incision and drainage, infection, right long finger metacarpophalangeal joint. 2. Arthrotomy with synovectomy, right long finger metacarpophalangeal joint. 3. Application of dressing, wet-to-dry same joint. 4. Findings of thick white pasty material surrounded by increased fluid under pressure and the fluid was drained. DESCRIPTION OF PROCEDURE: After successful general LMA technique, the limb was prepped and draped. Patient had an incision lined up in a zigzag manner over the long finger where was most tense, palmar and dorsal. Patient then had the tourniquet inflated with the skin marker intact and then secured. After tourniquet inflation and limb exsanguination to 250 mmHg pressure, we then placed the arm in t center of the field which was already sterile. We made an incision and drainage over the right lo ng finger dorsal aspect and did not elect to do it on both sides of the joint. Then, we opened the e xtensor mechanism to the central tendon, carried to the skin, subcutaneous tissue debris and de brided the joint which also had thick white pasty material inside. Then, we irrigated with 8 liters of normal saline and Pulsavac pressure, and the patient did not have the wound opened, close the ____ _ not made bigger and the open wound was packed with normal saline soaked gauze.
[2017-07-14 14:56] LABS: Vancomycin, Trough 30.3 ug/mL
[2017-07-14] MEDS: Ketorolac Tromethamine 30 MG/ML VIAL IVP PRN (21:35)
[2017-07-14] MEDS: Atorvastatin Calcium 20 MG TAB PO SCH (21:40)
[2017-07-15] MEDS: Clindamycin/D5W 600 MG in Premix Bag 1 BAG IVPB SCH ×2 (01:00→08:21)
[2017-07-15 02:22] LABS: Vancomycin, Random 16.1 ug/mL (See Comment)
[2017-07-15] MEDS ORDERED: Vancomycin HCl 1.25 GM in Sodium Chloride 0.9% 250 ML 250 ML IVPB SCH (03:00)
[2017-07-15] MEDS ORDERED: Vancomycin HCl 1.5 GM in Sodium Chloride 0.9% 250 ML 300 ML IVPB SCH (03:00)
[2017-07-15 07:09] VITALS: BP 158/97; TEMP 98
[2017-07-15] MEDS: Brimonidine Tartrate 0.2% Ophth Soln 5 ml Bottle EA EYE SCH (08:21)
[2017-07-15] MEDS: Colchicine 0.6 MG TAB PO SCH (08:22)
[2017-07-15] MEDS: Enoxaparin Sodium 40 MG/0.4 ML SYRINGE SC SCH (08:22)
[2017-07-15] MEDS: Indomethacin 25 mg Capsule PO SCH (08:22)
[2017-07-15] MEDS: Folic Acid 1 MG TAB PO SCH (08:23)
[2017-07-15] MEDS: HYDROcodone/Acetaminophen 10/325 mg Tablet PO PRN (08:23)
[2017-07-15] MEDS: Famotidine 20 MG TAB PO SCH (08:23)
[2017-07-15] MEDS: Loteprednol Etabonate 0.5% Ophth Suspension 5 ml Bottle EA EYE SCH (08:30)
[2017-07-15] MEDS: Saccharomyces boulardii 250 MG CAP PO SCH (08:33)
[2017-07-15] MEDS: Timolol 0.5% Ophth Soln 5 ml Bottle EA EYE SCH (08:33)
--- NOTE | 2017-07-15 10:00 | DIS ---
DATE OF ADMISSION: 07/11/2017 DATE OF DISCHARGE: 07/15/2017 PRIMARY CARE PHYSICIAN: Sebastien Tuttle M.D. DISCHARGE DISPOSITION: Home. PRIMARY DISCHARGE DIAGNOSIS: Right hand cellulitis with abscess, status post incision and drainage. SECONDARY DISCHARGE DIAGNOSES: Glaucoma, dyslipidemia, obstructive sleep apnea, ulcerative colitis. PRIMARY PROCEDURE/OPERATION: Dr. Aden Waldron did incision and drainage of right long finger meta carpophalangeal joint arthrotomy with synovectomy of her right long finger metacarpophalangeal joint. RADIOLOGICAL INVESTIGATION: Hand x-ray showed no acute process other than soft tissue swelling. Low er extremity ultrasound showed fluid collection consistent with subcutaneous abscess. SIGNIFICANT LABORATORY DATA: WBC 7.7, hemoglobin 12.2, platelet 195. Sodium 135, potassium 3.8, BUN 11, creatinine 0.60, calcium 9.1. LFT normal. CRP 2.28. Culture from blood and wound is negative by the time of dictation. DISCHARGE MEDICATIONS: New medications, colchicine 0.6 mg p.o. b.i.d. for 7 days, Pepcid 20 mg p.o. b.i.d. for 7 days, indomethacin 50 mg p.o. b.i.d. for 7 days, Bactrim DS one tablet twice daily for 5 days, Florastor 250 mg p.o. daily. Continue following medications; Combigan ophthalmic drop each eye b.i.d., folic acid 1 mg p.o. daily, Lotemax ophthalmic drop b.i.d., Lialda 1.2 grams p.o. daily, mirabegron 50 mg p.o. daily, Zocor 40 m g p.o. daily. CONTRAINDICATIONS: None. CODE STATUS: FULL CODE. INPATIENT ACUTE CARE NURSE PRACTITIONER: Dr. Aden Waldron was consulted who did I&D. TEST RESULTS PENDING ON DISCHARGE: Pathology report from surgical site and culture result. ALLERGIES: AMOXICILLIN and ERYTHROMYCIN. DISCHARGE PLAN: Post hospital, patient will follow up with primary care physician in 1 week. Vilma rapp will follow up with Dr. Aden Waldron today and subsequently as instructed. HOSPITAL COURSE: A 71-year-old female who was admitted by pa on 07/11/2017. The patient was having right hand swelling, erythema and tenderness. She was not able to make a full fist with that hand. She had swelling up to the wrist level. The patient was suspected for hand cellulitis. The patient was treated with clindamycin and vancomycin. The patient did not have any clinical improvement, and that is why we consulted hand surgeon. We obtained ultrasound of the lower extremity which showed lora bcutaneous abscess that required incision and debridement by Dr. Samaniego. Postoperatively, patient required wound care. The patient received IV antibiotic therapy. Dr. Samaniego also started colchicine and indomethacin fo r suspected gout. At this point, culture result is pending and official pathology report is pending. Patient has appointment with Dr. Samaniego today and she will follow up with Dr. Samaniego as an outp atient basis. The patient is seen and examined at bedside today. The patient is hemodynamically stable. All new m edication prescription given. Discharge plan discussed with the patient in detail.
== END 2017-07-15 09:45 | disposition home or self-care (01) | DRG 513 ==
LOC: SCSER 23:25 → T4-B 07-11 02:20
PROVIDERS: ADMIT Internal Medicine; ATTEND Internal Medicine
PROC: 0X9J0ZZ Drainage of Right Hand, Open Approach (ICD-10-PCS; principal; 2017-07-14)
PROC: 0RBU0ZZ Excision of Right Metacarpophalangeal Joint, Open Approach (ICD-10-PCS; 2017-07-14)
DX: M00.9 Pyogenic arthritis, unspecified (principal); L03.113 Cellulitis of right upper limb; K51.90 Ulcerative colitis, unspecified, without complications; G47.33 Obstructive sleep apnea (adult) (pediatric); M19.90 Unspecified osteoarthritis, unspecified site; E78.5 Hyperlipidemia, unspecified; Z88.0 Allergy status to penicillin; Z88.1 Allergy status to other antibiotic agents; Z96.653 Presence of artificial knee joint, bilateral; Z96.89 Presence of other specified functional implants; Z79.899 Other long term (current) drug therapy; H40.9 Unspecified glaucoma
CPT/HCPCS: 36415; 76882; 80048; 80053; 80202; 80307; 83605; 84550; 85025; 85652; 86140; 87040; 87070; 87205; 88305; 89060; 96365; 96375; J2270; A4216; G0483; J1100; J1650; J1885; J2001; J2405; J2704; J3010; J3370; J3490; J7050; Q0162; S0020

== ENCOUNTER 2017-07-19 11:14 | Day surgery (SDC) | payer MEDICARE ==
[2017-07-18 16:32] VITALS: BMI 25.4
[2017-07-19] MEDS ORDERED: PROPOFOL 200 MG/20 ML VIAL ONE (16:20)
[2017-07-19] MEDS ORDERED: Dexamethasone 20 MG/5 ML VIAL ONE (16:20)
[2017-07-19] MEDS ORDERED: Metoclopramide HCl 10 MG/2 ML VIAL ONE (16:20)
[2017-07-19] MEDS ORDERED: Lidocaine 1% PF 5 ML VIAL ONE (16:20)
[2017-07-19] MEDS ORDERED: Ondansetron HCl/PF 4 MG/2 ML Vial ONE (16:20)
[2017-07-19] MEDS ORDERED: Fentanyl 100 MCG/2 ML VIAL ONE ×2 (16:24→18:15)
[2017-07-19] MEDS ORDERED: Sodium Chloride 0.9% 10 ML ONE (16:31)
[2017-07-19] MEDS ORDERED: Bacitracin Zinc Ointment 30 gm TUBE ONE (16:31)
[2017-07-19] MEDS ORDERED: Bupivacaine PF 0.5% 30 ML VIAL ONE (16:31)
[2017-07-19] MEDS ORDERED: Clindamycin/D5W 600 mg/50 ml Premix Bag ONE (16:46)
[2017-07-19] MEDS ORDERED: Ondansetron ODT 8 MG TAB ONE (17:08)
[2017-07-19] MEDS ORDERED: Midazolam HCl 2 mg/2 ml Vial ONE (17:08)
[2017-07-19] MEDS ORDERED: Ketorolac Tromethamine 30 MG/ML VIAL ONE (18:12)
[2017-07-19] MEDS ORDERED: HYDROcodone/Acetaminophen 5/325 mg Tablet ONE (19:58)
--- NOTE | 2017-07-20 06:39 | OP ---
DATE OF PROCEDURE: 07/19/2017 PREOPERATIVE DIAGNOSIS: Open wound, 4 cm, right ring finger exposed joint and retinaculum. POSTOPERATIVE DIAGNOSES: Open wound, 4 cm, right ring finger exposed joint and retinaculum. No trish s infection found. Clean wound and without even evidence of pseudogout, exudate. PROCEDURES PERFORMED: 1. Debridement of joint and wound with following techniques: A. Use of tenotomy scissors, [place] blade, 11-blade knife. B. Excision technique. C. Depth was including the joint, space, joint capsule, deep tissue, retinaculum, skin, subcutaneous , and epidermis. There was no gross infection or contamination. 2. Closure of retinaculum/retinacular repair, ulnar aspect, and 3 closure wound 4 cm in two layers. TOURNIQUET TIME: None. ESTIMATED BLOOD LOSS: 10 mL. INDICATIONS: Staged wound management after what was thought to be infection 7 days ago proved out to be pseudogout. Wound was cleaned with dressing change in the clinic within 24 hours of this treatme nt. DESCRIPTION OF PROCEDURE: After successful general LMA technique, limb was prepped and draped. She had 10 mL of zulma-incisional block, limb was not exsanguinated. We then inspected the joint, found t he findings above to include no evidence of pseudogout infection. There was some fibrinous material at the level of retinaculum. The joint capsule was debrided using techniques as listed above. We th en irrigated with 2 liters of normal saline and Pulsavac pressure. This included all layers; joint, subcutaneous, and intermediate tissues. When hemostasis was obtained, I repaired the retinaculum with interrupted [id number] 4-0 Prolene in small cut in needle. Repaired the dermis in separate layer with a running 4-0 Monocryl undyed an d the epidermis with a 4-0 nylon interrupted mattress pattern. We injected with an additional 10 mL of 0.5% Marcaine zulma-incisional, placed in the soft dressing, and the patient left the operating christina m without evidence of anesthetic or operative complication.
== END 2017-07-19 20:05 | disposition home or self-care (01) ==
LOC: SDC 11:14
PROVIDERS: ATTEND Orthopaedic Surgery Hand Surgery
PROC: 0PBT0ZZ Excision of Right Finger Phalanx, Open Approach (ICD-10-PCS; principal; 2017-07-19)
DX: S61.204A Unspecified open wound of right ring finger without damage to nail, initial encounter (principal); E78.5 Hyperlipidemia, unspecified; G89.29 Other chronic pain; M85.80 Other specified disorders of bone density and structure, unspecified site; M11.20 Other chondrocalcinosis, unspecified site; Z88.0 Allergy status to penicillin; Z88.8 Allergy status to other drugs, medicaments and biological substances; Z79.899 Other long term (current) drug therapy
CPT/HCPCS: 36415; 85652; 96374; A4216; J0131; J1100; J1885; J2001; J2250; J2405; J2704; J2765; J3010; J3490; S0020

== ENCOUNTER 2017-07-25 04:32 | Emergency (ER) | payer MEDICARE ==
[2017-07-25] MEDS ORDERED: Bacitracin Zinc 1 Packet ONE (04:54)
== END 2017-07-25 05:21 | disposition home or self-care (01) ==
LOC: SCSER 04:32
DX: Z48.817 Encounter for surgical aftercare following surgery on the skin and subcutaneous tissue (principal); Z79.899 Other long term (current) drug therapy
CPT/HCPCS: 99282

== ENCOUNTER 2017-08-30 15:45 | Outpatient (CLI) | payer MEDICARE | END 2017-08-30 15:46 | disposition home or self-care (01) | LOC: BICMAMMO 15:45 | PROVIDERS: ATTEND Family Medicine | DX: Z12.31 Encounter for screening mammogram for malignant neoplasm of breast (principal) | CPT/HCPCS: 77063; 77067 ==

== ENCOUNTER 2017-09-13 09:27 | Outpatient (CLI) | payer MEDICARE ==
--- NOTE | 2017-09-13 13:20 | CT ---
RIGHT SHOULDER CT WITH POST ARTHROGRAM CONTRAST: History: 71-year-old female with history of right shoulder pain. FINDINGS: CT examination was performed following a right shoulder arthrogram. Evidence for status post extensive acromioplasty changes are noted as well as rotator cuff repair wit h an anchor stabilizing the anterior greater tuberosity region. There is a full thickness irregular t ear at the level of the magic angle at the supraspinatus tendon with a very irregular free tendon mar gin which overlies the humeral dome. Intraarticular contrast media extends through the tear into the subacromial, subdeltoid bursa region. There is a very wide large acromioplasty defect including the A C joint region. The infraspinatus tendon appears intact. The biceps tendon is intact within the bicip ital groove, but is poorly seen intraarticularly. Under surface delaminating tear/tears of the subsca pularis tendon which is somewhat thickened, evidence for tendinopathy. Severe muscle volume loss of t he supraspinatus muscle. There are several foci of extension of contrast media into the superior and posterior deltoid muscle, evidence for minimal dehiscense. There is some contrast media extending int o the anterior deltoid muscle although this may well be related to injection. Prominent posterior gle noid subchondral cystic changes with narrowing of the shoulder glenohumeral joint, evidence for gleno humeral joint arthropathy. IMPRESSION: Evidence for glenohumeral joint arthropathy with markedly narrowed glenohumeral joint with some promi nent posterior mid and superior glenoid subchondral cystic changes. Complete full thickness irregular tear of the supraspinatus tendon with severe muscle volume loss of the supraspinatus muscle. Undersu rface and delaminating tears of the subscapularis tendon with some thickening, evidence for tendinopa thy. Intact biceps tendon within the bicipital groove although it is not definitely identified within the intraarticular region. Post-operative changes with a large acromioplasty defect. Some minimal co ntrast extension cranially and laterally and posteriorly into the deltoid muscle, evidence for minima l deltoid dehiscense. POS: [facility]
--- NOTE | 2017-09-13 13:26 | RAD ---
RIGHT SHOULDER ARTHROGRAM: History: Right shoulder pain. Exposure: 1.2 minutes, 129.5 mGy*cm^2. FINDINGS: Initial desktop manager radiograph of the right shoulder demonstrates previous rotator cuff repair. No fracture or dislocation. There is mild irregularity involving the distal aspect of the right clavicle. Successful right shoulder arthrogram. Contrast opacifies the joint space. The majority of the contras t is in the subdeltoid bursa. A small amount of contrast is noted along the biceps tendon sheath. Technique: Consent obtained for right shoulder arthrogram. Right shoulder was prepped and draped in sterile fash ion. 1% Lidocaine, buffered with sodium bicarbonate used for local anesthesia. Under fluoroscopic jeannette dance, a 22 gauge spinal needle was advanced into the right shoulder joint space. Contrast was admini stered. Contrast flows freely and opacifies the biceps tendon sheath as well as subdeltoid bursa. The re are no immediate or post procedure complications. IMPRESSION: Successful right shoulder arthrogram. POS: [facility]
== END 2017-09-13 09:28 | disposition home or self-care (01) ==
LOC: RAD 09:27
PROVIDERS: ATTEND Orthopaedic Surgery
DX: M25.511 Pain in right shoulder (principal); M75.121 Complete rotator cuff tear or rupture of right shoulder, not specified as traumatic; M19.011 Primary osteoarthritis, right shoulder; M75.91 Shoulder lesion, unspecified, right shoulder
CPT/HCPCS: 23350

== ENCOUNTER 2018-01-06 10:30 | Emergency (ER) | payer MEDICARE | END 2018-01-06 11:17 | disposition home or self-care (01) | LOC: SCSER 10:30 | DX: M25.511 Pain in right shoulder (principal); E78.5 Hyperlipidemia, unspecified; G47.30 Sleep apnea, unspecified; Z79.899 Other long term (current) drug therapy | CPT/HCPCS: 99283 ==

== ENCOUNTER 2018-06-09 07:27 | Outpatient (CLI) | payer MEDICARE ==
--- NOTE | 2018-06-09 08:12 | ULT ---
Abdominal sonogram complete HISTORY: Upper abdomen pain. FINDINGS: Gallbladder has a normal appearance without evidence of stones. Common duct is 0.5 cm. Mass or intrahepatic biliary dilatation. No free fluid. The spleen, kidneys, and visualized portions of the abdominal aorta, IVC, and pancreas are unremarkab le. IMPRESSION: Hepatic steatosis. No evidence of gallstones or biliary obstruction.
== END 2018-06-09 07:28 | disposition home or self-care (01) ==
LOC: SCSULT 07:27
PROVIDERS: ATTEND Internal Medicine Gastroenterology
DX: K51.00 Ulcerative (chronic) pancolitis without complications (principal); K59.03 Drug induced constipation; M54.9 Dorsalgia, unspecified; R10.13 Epigastric pain; R10.9 Unspecified abdominal pain; H20.9 Unspecified iridocyclitis; K76.0 Fatty (change of) liver, not elsewhere classified; Z80.0 Family history of malignant neoplasm of digestive organs
CPT/HCPCS: 76700

== ENCOUNTER 2018-07-13 08:43 | Outpatient (CLI) | payer MEDICARE, OTHER ==
[2018-07-13] MEDS ORDERED: Iopamidol 370 76% 100 ML VIAL ONE (09:00)
--- NOTE | 2018-07-13 09:59 | CT ---
EXAM: ABDOMEN AND PELVIC CT SCAN WITH CONTRAST: HISTORY: Abdominal pain, colitis. COMPARISON: None. FINDINGS: The visualized lung bases are clear. Liver: Hepatic steatosis. Gallbladder: Unremarkable. Pancreas: Unremarkable Spleen: Unremarkable. Adrenal glands: Unremarkable. Kidneys: No renal calculus or acute obstruction. No solid or cystic mass. Bowel: No evidence for bowel obstruction. Contrast opacified small bowel is noninflamed. There are co lonic diverticula with moderate retained fecal material of the colon. Urinary Bladder: The urinary bladder is unremarkable. Adenopathy: No adenopathy within the abdomen or pelvis. Free Air: No free air. Ascites: No ascites. Scattered vascular disease is present. There are electronic devices of the bilateral gluteal soft tis sues with stimulator leads entering the spinal canal and left sacral neural foramen. Osseous structures: No acute osseous abnormalities. IMPRESSION: 1. No acute abnormality of the bowel. 2. Additional findings are discussed above. Transcribed Date/Time: 07/13/2018 10:12 AM
== END 2018-07-13 08:44 | disposition home or self-care (01) ==
LOC: SCSCT 08:43
PROVIDERS: ATTEND Internal Medicine Gastroenterology
DX: K59.03 Drug induced constipation (principal); K51.00 Ulcerative (chronic) pancolitis without complications; R10.9 Unspecified abdominal pain; K57.30 Diverticulosis of large intestine without perforation or abscess without bleeding
CPT/HCPCS: 74177; 82565; Q9967

== ENCOUNTER → 2018-07-26 | Day surgery (SDC) | payer MEDICARE, OTHER ==
[2018-07-25 11:35] VITALS: BMI 27.3
[~2018-07-26] MED LIST: Bupivacaine HCl 0.5%/Epinephrine 1:200,000/PF 30 ml Vial ONE; Fentanyl 100 MCG/2 ML VIAL ONE
--- NOTE | 2018-07-26 19:58 | OP ---
DATE OF PROCEDURE: 07/26/2018 PREOPERATIVE DIAGNOSES: 1. Spinal cord stimulation system needing explant. 2. Chronic pain. 3. Postlaminectomy syndrome. 4. Lumbar radiculopathy. POSTOPERATIVE DIAGNOSES: 1. Spinal cord stimulation system needing explant. 2. Chronic pain. 3. Postlaminectomy syndrome. 4. Lumbar radiculopathy. PROCEDURES PERFORMED: 1. Removal of right spinal cord stimulation electrode array and anchor. 2. Removal of left spinal cord stimulation array and anchor. 3. Removal of IPG. 4. Fluoroscopic guidance. ANESTHESIA: TIVA. COMPLICATIONS: None. SUMMARY: Risks and benefits were discussed. Informed consent was obtained. She was taken to the OR, prepped and draped in standard fashion with ChloraPrep and let dry. Fluoroscopy was used to identify the lead anchors. After adequate local anesthesia with 0.5% Marcaine with epinephrine, incision was made overlying the anchors over the previous incision and blunt dissection down to the anchors and anchor sutures. Each was identified, ligated, and anchors removed. Both the right and left lead arrays were then removed from the spinal canal. Attention was then turned to the IPG pocket. After adequate local anesthesia, incision and blunt dissection down to the IPG, the IPG was externalized. The lead was then removed and the entire system was explanted. Closure was accomplished with interrupted 2-0 Vicryl in layers, and the skin was closed with running subcuticular 4-0 Rapide. Dermabond, 4x4s, and Medipore tape were used for dressing. Prior to closure, all counts were correct x2. No complications. Job ID: [id number]
== END ==
LOC: SDC 10:57
PROVIDERS: ATTEND Anesthesiology Pain Medicine
PROC: 00PU3MZ Removal of Neurostimulator Lead from Spinal Canal, Percutaneous Approach (ICD-10-PCS; principal; 2018-07-26)
PROC: 0JPT0MZ Removal of Stimulator Generator from Trunk Subcutaneous Tissue and Fascia, Open Approach (ICD-10-PCS; 2018-07-26)
DX: Z46.2 Encounter for fitting and adjustment of other devices related to nervous system and special senses (principal); G89.29 Other chronic pain; M96.1 Postlaminectomy syndrome, not elsewhere classified; M54.16 Radiculopathy, lumbar region; M48.061 Spinal stenosis, lumbar region without neurogenic claudication; M48.02 Spinal stenosis, cervical region; Z88.0 Allergy status to penicillin; Z88.8 Allergy status to other drugs, medicaments and biological substances
CPT/HCPCS: 76000; J0670; J3010

== ENCOUNTER → 2018-07-31 | Day surgery (SDC) | payer MEDICARE | LOC: SCSER/OP 11:49 | PROVIDERS: ATTEND Family Medicine | DX: Z01.810 Encounter for preprocedural cardiovascular examination (principal); M19.90 Unspecified osteoarthritis, unspecified site; Z88.0 Allergy status to penicillin; Z88.1 Allergy status to other antibiotic agents; Z88.6 Allergy status to analgesic agent; Z79.891 Long term (current) use of opiate analgesic; Z79.899 Other long term (current) drug therapy ==

== ENCOUNTER 2018-08-18 14:28 | Emergency (ER) | payer MEDICARE, OTHER | END 2018-08-18 14:47 | disposition home or self-care (01) | LOC: SCSER 14:28 | DX: G89.29 Other chronic pain (principal); M54.2 Cervicalgia; E78.5 Hyperlipidemia, unspecified; M19.90 Unspecified osteoarthritis, unspecified site; G47.30 Sleep apnea, unspecified; Z79.899 Other long term (current) drug therapy | CPT/HCPCS: 99283 ==

== ENCOUNTER 2018-09-15 08:13 | Outpatient (CLI) | payer MEDICARE, OTHER ==
--- NOTE | 2018-09-15 12:15 | NM ---
NUCLEAR MEDICINE HEPATOBILIARY SCAN: DATE: 09/15/18 HISTORY: 72-year-old female with epigastric pain. TECHNIQUE: [id number] dose: 5.7 mCi Ensure (fatty meal) dose: 8 oz. [id number] injected IV. Dynamic anterior scintigraphy of abdomen for 1 hour. fatty meal given. Additional dynamic anterior scintigraphy of abdomen. Counts obtained over gallbladder. Time-activity curve generated. FINDINGS: There is normal uptake and washout of radiopharmaceutical agent from the liver. The gallbladder fill s normally. Bowel activity is visualized at an appropriate time. The gallbladder ejection fraction is normal: 98%. IMPRESSION: Normal. jn [] POS: [facility]
== END 2018-09-15 08:14 | disposition home or self-care (01) ==
LOC: NM 08:13
PROVIDERS: ATTEND Internal Medicine Gastroenterology
DX: R10.13 Epigastric pain (principal); K51.90 Ulcerative colitis, unspecified, without complications; M54.9 Dorsalgia, unspecified; K59.03 Drug induced constipation
CPT/HCPCS: 78227; A9537

== ENCOUNTER 2018-10-05 23:43 | Emergency (ER) | payer MEDICARE | END 2018-10-06 00:12 | disposition home or self-care (01) | LOC: SCSER 23:43 | DX: Z46.6 Encounter for fitting and adjustment of urinary device (principal); E78.5 Hyperlipidemia, unspecified; G47.30 Sleep apnea, unspecified; Z79.899 Other long term (current) drug therapy | CPT/HCPCS: 99283 ==

== ENCOUNTER 2019-03-26 07:45 | Outpatient (CLI) | payer MEDICARE, OTHER ==
--- NOTE | 2019-03-26 08:40 | RAD ---
EXAM: XR Abdomen 1 View/KUB PROVIDED CLINICAL HISTORY: MRI clearance. History of neurostimulator device is in place. Patient reports removal of neural stimu lator devices. COMPARISON: CT abdomen and pelvis on 07/13/2018 FINDINGS: Previously seen neural stimulator devices overlying the pelvis on the prior exam have been removed. D orsal column stimulator leads overlying the thoracic spine are not visualized on this exam. Comparison chest x-ray on 07/28/2018 also demonstrated that the dorsal column stimulator leads overlyi ng the lower thoracic spine have been removed. Postsurgical changes lumbar spine are noted with pedicular screws and posterior rods transfixing the lumbosacral spine. There are bipedicular screws s een in the L1, L2, L4, L5 vertebral bodies with unilateral left-sided pedicular screw screw in the L3 vertebral body. There is a unilateral left-sided pedicular screw in the L3 vertebral body without interconnecting monty. Intradiscal prostheses are seen at the L4-5 and L5-S1 levels. There does appear to be lucencies surrounding the pedicular screws in the L1 vertebral body. Bowel gas pattern is nonspecific. No suspicious calcifications are seen. Limited visualized lung base s are clear. IMPRESSION: 1. Previously noted neural stimulating devices overlying the pelvis on prior exam are no longer seen on this study likely related to history of interval removal. 2. Postsurgical changes lumbosacral spine with lucency surrounding the L1 pedicular screws which coul d be related to hardware loosening.
--- NOTE | 2019-03-26 11:16 | MRI ---
MRI RIGHT WRIST: DATE: 03/26/2019. PROVIDED CLINICAL HISTORY: Pain. FINDINGS: Evaluation is markedly limited due to patient motion. The trapezium is not identified, presumably on a postoperative basis. Osteophyte formation involving the thumb metacarpal base is demonstrated. There is a greater than physiologic amount of fluid within the distal radial ulnar joint. Normal-sarai earing TFC disk is not apparent on the coronal images (which are significantly degraded by patient mo tion). Evaluation of the scapholunate and lunotriquetral ligaments and the remainder of the TFC comp declan is not possible. Alignment appears otherwise anatomic. The amount of fluid within the mid carpal and radiocarpal join ts appears grossly physiologic. No regional tenosynovial fluid is evident. The dorsal extensor and volar flexor tendons appear grossly intact. IMPRESSION: Limited examination due to patient motion. Findings suspicious for tearing of the triangular fibroca rtilage disk as described above. POS: TPC
== END 2019-03-26 07:46 | disposition home or self-care (01) ==
LOC: SCSMRI 07:45
PROVIDERS: ATTEND Orthopaedic Surgery Hand Surgery
DX: S63.591A Other specified sprain of right wrist, initial encounter (principal); S63.592A Other specified sprain of left wrist, initial encounter; Z96.698 Presence of other orthopedic joint implants; Z98.890 Other specified postprocedural states
CPT/HCPCS: 74018

== ENCOUNTER 2019-03-30 08:13 | Outpatient (CLI) | payer MEDICARE, OTHER ==
--- NOTE | 2019-03-30 09:23 | MRI ---
MRI OF THE LEFT WRIST WITHOUT CONTRAST: INDICATION: History of left wrist pain and triangular fibrocartilage injury. TECHNIQUE: Multiplanar multisequence MR images were obtained of the left wrist. Motion artifact heavily limits i mage detail. COMPARISON: None. FINDINGS: On the sagittal images there is marked dorsal malalignment of the lunate in relationship to the capit ate. The scapholunate ligaments are not well seen. Portions of the dorsal band appear to be intact. There is marked edema involving the proximal pole of the scaphoid. There are degenerative changes inv olving the articulations with the capitate and trapezoid as well as the capitate with the second and third metacarpal bases. The TFC demonstrates what appears to be a small central perforation. Ther e is mild tendinosis and tenosynovitis involving the ECU tendon sheath. The visualized flexor tendons and median nerve appear within normal limits. IMPRESSION: 1. Heavily limited limited MR examination of the left wrist due to motion artifact. 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 The degree of motion artifact limits image detail of the intrinsic wrist ligaments. The dorsal band appears to be intact. Recommend consideration for repeat MR arthrogram of the left wrist. Correlation with left wrist radiographs recommended. 2. Small central perforation of the triangular fibrocartilage complex (TFC) with mild extensor carpi ulnaris (ECU) tenosynovitis. Transcribed Date/Time: 03/30/2019 9:34 AM
--- NOTE | 2019-03-30 14:09 | RAD ---
TWO VIEW CHEST: 03/30/19 HISTORY: Uveitis. COMPARISON: 07/28/18. Lung simms remain clear. The heart and mediastinum unremarkable. Vascular markings normal. Osseous structures are unremarkable. Left shoulder prosthesis and prior anchor in right humeral head again n oted. Postop changes in the lumbar spine. IMPRESSION: No acute chest finding. POS: H
== END 2019-03-30 08:14 | disposition home or self-care (01) ==
LOC: SCSMRI 08:13
PROVIDERS: ATTEND Orthopaedic Surgery Hand Surgery
DX: S63.592A Other specified sprain of left wrist, initial encounter (principal); S63.502A Unspecified sprain of left wrist, initial encounter
CPT/HCPCS: 71046

== ENCOUNTER 2019-08-02 12:02 | Outpatient (CLI) | payer MEDICARE, OTHER ==
--- NOTE | 2019-08-02 16:20 | MMO ---
Bilateral MAMMO Bilat Screen [facility]. CLINICAL HISTORY: Patient is 73 years old and is seen for screening. The patient has no family history of breast cancer. The patient has no personal history of cancer. VIEWS: The views performed were: bilateral craniocaudal with tomosynthesis and bilateral mediolateral oblique with tomosynthesis. FILMS COMPARED: The present examination has been compared to prior imaging studies performed at [facility] on 08/30/2017, and at [facility] on 09/26/2013, 10/01/2013 and 11/29/2014. This study has been interpreted with the assistance of computer-aided detection. MAMMOGRAM FINDINGS: The breasts are almost entirely fat. There are stable benign appearing calcifications seen in both breasts. There are no suspicious masses, suspicious calcifications, or new areas of architectural distortion. IMPRESSION: THERE IS NO MAMMOGRAPHIC EVIDENCE OF MALIGNANCY. A ROUTINE FOLLOW-UP MAMMOGRAM IN 1 YEAR IS RECOMMENDED. THE RESULTS OF THIS EXAM WERE SENT TO THE PATIENT. ACR BI-RADS Category 2 - Benign finding MAMMOGRAPHY NOTE: 1. A negative mammogram report should not delay a biopsy if a dominant of clinically suspicious mass is present. 2. Approximately 10% to 15% of breast cancers are not detected by mammography. 3. Adenosis and dense breasts may obscure an underlying neoplasm. Reported by: CECE AZUL MD Electonically Signed: [id number]
== END 2019-08-02 12:03 | disposition home or self-care (01) ==
LOC: MERGE 12:02 → BICMAMMO 12:02
PROVIDERS: ATTEND Family Medicine
DX: Z12.31 Encounter for screening mammogram for malignant neoplasm of breast (principal)
CPT/HCPCS: 77063; 77067

== ENCOUNTER 2020-02-25 14:41 | Outpatient (CLI) | payer MEDICARE, OTHER ==
--- NOTE | 2020-02-25 15:12 | CT ---
CT CERVICAL SPINE WITHOUT CONTRAST: HISTORY: Spondylolysis. COMPARISON: None. FINDINGS: No craniocervical dissociation. Appropriate alignment of the lateral masses of C1 and C2. Intact odon toid process. Appropriate alignment of the facets.. Straightening of cervical lordosis is felt to be due to fusion . There is 3.7 mm of anterolisthesis o f C2 upon C3 and 2 mm of anterolisthesis of C3 upon C4. There is an anterior fusion plate with transvertebral body screw at C4, C5 and C6. No perihardware lucency. There is a disc prosthesis at C4 -C5 and C5-C6. Soft tissue neck structures: No mass, lymphadenopathy or hematoma. No prevertebral soft tissue swelli ng. Upper mediastinum and lung apices: Unremarkable. Central spinal canal: Limited evaluation due to the lack of intrathecal contrast. C2-C3: No significant central canal stenosis. Moderate right neural foraminal narrowing due to uncove rtebral and facet hypertrophy. Patent left neural foramen. C3-C4: No significant central canal stenosis. Mild to moderate bilateral neural foraminal narrowing d ue to uncovertebral and facet hypertrophy. C4-C5: Disc prosthesis. Central/left paracentral osteophyte ridge. Moderate central canal stenosis. M oderate to severe bilateral foraminal narrowing due to uncovertebral hypertrophy. C5-C6: Disc prosthesis. Broad-based osteophyte ridge. Moderate central canal stenosis. Moderate bilat eral neural foraminal narrowing due to uncovertebral hypertrophy. C6-C7: Broad-based osteophyte ridge. Mild central canal stenosis. Moderate bilateral neural foraminal narrowing due to uncovertebral hypertrophy. C7-T1: No significant central canal stenosis. Patent bilateral neural foramina. Vertebral bodies: Cervical spine vertebral body height is maintained. No fracture. IMPRESSION: 1. No fracture. 2. C4-C6 fusion. No evidence of a complicating process or loosening. 3. Grade 1 anterolisthesis of C2 upon C3 and C3 upon C4. 4. Multilevel degenerative changes of the cervical spine as described above. There is multilevel sign ificant central canal stenosis and significant neural foraminal narrowing. Transcribed Date/Time: 02/25/2020 3:23 PM
== END 2020-02-25 14:42 | disposition home or self-care (01) ==
LOC: CT 14:41
DX: M47.812 Spondylosis without myelopathy or radiculopathy, cervical region (principal); M96.0 Pseudarthrosis after fusion or arthrodesis; M43.12 Spondylolisthesis, cervical region; M48.02 Spinal stenosis, cervical region; Z98.1 Arthrodesis status
CPT/HCPCS: 72125

== ENCOUNTER 2020-07-04 13:15 | Outpatient (CLI) | payer MEDICARE, OTHER ==
[~2020-07-04 13:15] MED LIST changes: -Bupivacaine HCl 0.5%/Epinephrine 1:200,000/PF 30 ml Vial ONE; -Fentanyl 100 MCG/2 ML VIAL ONE; +Magnevist 469MG/ML 20 ML VIAL ONE
[2020-07-04 13:51] LABS: Estimated GFR-MDRD - POC Greater than 90
== END 2020-07-04 13:16 | disposition home or self-care (01) ==
LOC: BICMRI 13:15
PROVIDERS: ATTEND Orthopaedic Surgery
DX: R32 Unspecified urinary incontinence (principal); M47.816 Spondylosis without myelopathy or radiculopathy, lumbar region; M51.24 Other intervertebral disc displacement, thoracic region; M48.061 Spinal stenosis, lumbar region without neurogenic claudication; Z98.1 Arthrodesis status
CPT/HCPCS: 72158; 82565; A9579

== ENCOUNTER 2020-08-10 06:20 | Emergency (ER) | payer MEDICARE, OTHER | END 2020-08-10 06:59 | disposition home or self-care (01) | LOC: ERS 06:20 | DX: H61.22 Impacted cerumen, left ear (principal); E78.5 Hyperlipidemia, unspecified; E78.00 Pure hypercholesterolemia, unspecified; M19.90 Unspecified osteoarthritis, unspecified site | CPT/HCPCS: 69210 ==

== ENCOUNTER 2020-08-14 08:23 | Outpatient (CLI) | payer MEDICARE, OTHER | END 2020-08-14 08:24 | disposition home or self-care (01) | LOC: BICRAD 08:23 | PROVIDERS: ATTEND Anesthesiology Pain Medicine | DX: S32.009K Unspecified fracture of unspecified lumbar vertebra, subsequent encounter for fracture with nonunion (principal); M47.816 Spondylosis without myelopathy or radiculopathy, lumbar region; Z98.890 Other specified postprocedural states | CPT/HCPCS: 72110 ==

== ENCOUNTER 2020-11-13 09:11 | Outpatient (CLI) | payer MEDICARE, OTHER | END 2020-11-13 09:12 | disposition home or self-care (01) | LOC: PET 09:11 | PROVIDERS: ATTEND Internal Medicine Hematology & Oncology | DX: R91.8 Other nonspecific abnormal finding of lung field (principal); R91.1 Solitary pulmonary nodule | CPT/HCPCS: 78815; A9552 ==

== ENCOUNTER 2020-11-17 14:19 | Outpatient (CLI) | payer MEDICARE, OTHER ==
[2020-11-17 15:06] LABS: #Eosinphils 0.3 10x3/uL (0.0-0.5); #Monocytes 0.5 10x3/uL (0.0-1.1); #Neutrophils 4.8 10x3/uL (1.5-8.4); %Basophils 0.3 % (0.0-2.0); %Eosinophils 3.8 % (0.0-6.0); %Lymphocytes 21.9 % (18.0-47.0); %Monocytes 7.5 % (0.0-10.0); %Neutrophils 66.2 % (40.0-75.0); Hemoglobin 10.6 g/dL (12.0-15.5); Mean Corpuscular Volume 76.6 fl (81.6-98.3); Mean Platelet Volume 8.9 fl (7.4-10.4); Platelet Count 357 10x3/uL (150-450); RBC Distribution Width 25.7 % (11.5-14.5); Red Blood Cell (RBC) Count 4.61 10x6/uL (3.90-5.03); White Blood Cell (WBC) Count 7.2 10x3/uL (3.5-10.5)
[2020-11-17 15:26] LABS: Anion Gap 14 mmol/L (10-20); Anisocytosis SLIGHT = 6-15 cells (100X) (0-5/hpf); BUN (Urea Nitrogen) 21 mg/dL (9.8-20.1); Calc. Creatinine Clearance 0 mL/min (70-130); Calcium 9.7 mg/dL (7.8-10.44); Carbon Dioxide 26 mmol/L (23-31); Chloride 100 mmol/L (98-107); Glucose 135 mg/dL (83-110); Platelet Morphology Comment Appears Adequate; Potassium 3.9 mmol/L (3.5-5.1); Sodium 136 mmol/L (136-145)
[2020-11-18 00:41] LABS: SARS-CoV-2 PCR by NAA Not Detected (NotDetected)
== END 2020-11-17 14:20 | disposition home or self-care (01) ==
LOC: LABBT 14:19
PROVIDERS: ATTEND Specialist
DX: Z01.818 Encounter for other preprocedural examination (principal); R59.1 Generalized enlarged lymph nodes; Z20.822 Contact with and (suspected) exposure to COVID-19
CPT/HCPCS: 71046; 80048; 85025; 93005; U0003; U0005; 93010

== ENCOUNTER 2020-11-20 12:37 | Day surgery (SDC) | payer MEDICARE, OTHER ==
[2020-11-19 12:14] VITALS: BMI 22.4
[2020-11-20] MEDS ORDERED: Lidocaine 1% w/Epinephrine 1:100K 20 ML VIAL ONE (12:42)
[2020-11-20] MEDS ORDERED: Bupivacaine 0.25% HCL 30 ML VIAL ONE (12:42)
[2020-11-20] MEDS ORDERED: Levofloxacin 500 mg/D5W 100 ml Premix Bag ONE (12:58)
[2020-11-20] MEDS ORDERED: Acetaminophen 500 MG TAB ONE (12:58)
[2020-11-20] MEDS ORDERED: Ketorolac Tromethamine 30 MG/ML VIAL ONE (12:58)
[2020-11-20] MEDS ORDERED: Fentanyl 100 MCG/2 ML VIAL ONE (13:04)
[2020-11-20] MEDS ORDERED: Famotidine/PF 20 mg/2ml Vial ONE (13:13)
[2020-11-20] MEDS ORDERED: Metoclopramide HCl 10 MG/2 ML VIAL ONE (13:41)
[2020-11-20] MEDS ORDERED: ePHEDrine 50 MG/ML VIAL ONE (13:41)
[2020-11-20] MEDS ORDERED: Lidocaine 1% PF 5 ML VIAL ONE (13:41)
[2020-11-20] MEDS ORDERED: Ondansetron PF 4 MG/2 ML Vial ONE (13:41)
[2020-11-20] MEDS ORDERED: PROPOFOL 200 MG/20 ML VIAL ONE (13:41)
[2020-11-20] MEDS ORDERED: Dexamethasone 20 MG/5 ML VIAL ONE (13:41)
== END 2020-11-20 17:50 | disposition home or self-care (01) ==
LOC: SDC 12:37
PROVIDERS: ATTEND Specialist
PROC: 07B60ZX Excision of Left Axillary Lymphatic, Open Approach, Diagnostic (ICD-10-PCS; principal; 2020-11-20)
DX: I89.8 Other specified noninfective disorders of lymphatic vessels and lymph nodes (principal); G47.33 Obstructive sleep apnea (adult) (pediatric); E78.5 Hyperlipidemia, unspecified; K51.90 Ulcerative colitis, unspecified, without complications; M81.0 Age-related osteoporosis without current pathological fracture; R73.03 Prediabetes; G89.29 Other chronic pain; Z86.73 Personal history of transient ischemic attack (TIA), and cerebral infarction without residual deficits; Z79.899 Other long term (current) drug therapy; Z88.0 Allergy status to penicillin; Z88.1 Allergy status to other antibiotic agents; Z88.6 Allergy status to analgesic agent
CPT/HCPCS: 88184; 88305; 88307; 88312; J1100; J1885; J1956; J2405; J2704; J2765; J3010; J3490; S0020; S0028

== ENCOUNTER 2021-01-04 13:59 | Inpatient (IN) | payer MEDICARE, OTHER ==
[2021-01-04 14:46] LABS: #Eosinphils 0.1 thou/uL (0.0-0.7); #Lymphocytes 1.4 thou/uL (1.20-3.40); #Monocytes 0.8 thou/uL (0.11-0.59); #Neutrophils 4.6 thou/uL (1.40-6.50); %Basophils 0.2 % (0.0-1.0); %Lymphocytes 19.8 % (21.0-51.0); %Monocytes 11.8 % (0.0-10.0); %Neutrophils 66.2 % (42.0-75.0); Hemoglobin 12.1 g/dL (12.0-16.0); Mean Corpuscular HGB CONC 31.8 g/dL (32.0-36.0); Mean Corpuscular Hemoglobin 25.8 pg (27.0-31.0); Mean Corpuscular Volume 81.2 fL (78.0-98.0); Mean Platelet Volume 7.3 fL (7.4-10.4); Platelet Count 276 thou/uL (130-400); RBC Distribution Width 18.2 % (11.5-14.5); Red Blood Cell (RBC) Count 4.67 mill/uL (4.20-5.40); White Blood Cell (WBC) Count 6.9 thou/uL (4.8-10.8)
[2021-01-04 14:57] LABS: Prothrombin Time 13.6 sec (12.0-14.7)
[2021-01-04 14:58] LABS: PTT 39.5 sec (22.9-36.1)
[2021-01-04 15:05] LABS: ALT (SGPT) 14 U/L (8-55); AST (SGOT) 17 U/L (5-34); Albumin 3.5 g/dL (3.4-4.8); Alkaline Phosphatase 64 U/L (40-110); Anion Gap 13 mmol/L (10-20); BUN (Urea Nitrogen) 11 mg/dL (9.8-20.1); Bilirubin, Total 0.6 mg/dL (0.2-1.2); Calc. Creatinine Clearance 0 mL/min (70-130); Calcium 9.8 mg/dL (7.8-10.44); Carbon Dioxide 28 mmol/L (23-31); Chloride 100 mmol/L (98-107); Globulin 4.1 g/dL (2.4-3.5); Glucose 99 mg/dL (83-110); Potassium 4.2 mmol/L (3.5-5.1); Protein, Total 7.6 g/dL (5.8-8.1); Sodium 137 mmol/L (136-145)
[2021-01-04] MEDS ORDERED: Ondansetron PF 4 MG/2 ML Vial IVP PRN (20:45)
[2021-01-04] MEDS ORDERED: Acetaminophen 325 MG TAB PO PRN (20:45)
[2021-01-04] MEDS ORDERED: methylPREDNISolone Sod Succ/PF 125 MG/2 ML VIAL IVP SCH (21:00)
[2021-01-04] MEDS ORDERED: Famotidine/PF 20 mg/2ml Vial SLOW IVP SCH (21:00)
[2021-01-04] MEDS ORDERED: diphenhydrAMINE 50 MG/ML VIAL IVP SCH (21:00)
[2021-01-04 21:28] VITALS: BMI 21.9
[2021-01-04] MEDS: methylPREDNISolone Sod Succ/PF 125 MG/2 ML VIAL IVP SCH (21:52)
[2021-01-05 05:33] LABS: #Lymphocytes 0.8 thou/uL (1.20-3.40); #Monocytes 0.1 thou/uL (0.11-0.59); #Neutrophils 4.5 thou/uL (1.40-6.50); %Basophils 0.3 % (0.0-1.0); %Eosinophils 0.1 % (0.0-10.0); %Lymphocytes 15.6 % (21.0-51.0); %Monocytes 1.1 % (0.0-10.0); %Neutrophils 82.9 % (42.0-75.0); Hemoglobin 11.7 g/dL (12.0-16.0); Mean Corpuscular Hemoglobin 25.1 pg (27.0-31.0); Mean Corpuscular Volume 81.2 fL (78.0-98.0); Mean Platelet Volume 7.6 fL (7.4-10.4); Platelet Count 286 thou/uL (130-400); Red Blood Cell (RBC) Count 4.65 mill/uL (4.20-5.40); White Blood Cell (WBC) Count 5.4 thou/uL (4.8-10.8)
[2021-01-05 05:50] LABS: Anion Gap 12 mmol/L (10-20); BUN (Urea Nitrogen) 10 mg/dL (9.8-20.1); Calc. Creatinine Clearance 86 mL/min (70-130); Calcium 9.5 mg/dL (7.8-10.44); Carbon Dioxide 28 mmol/L (23-31); Cardiac Risk 3.2 (Less than 4.5); Chloride 99 mmol/L (98-107); Cholesterol 156 mg/dl (< 200 Desired); Glucose 161 mg/dL (83-110); HDL Cholesterol 49 mg/dL (>60 Neg Risk); LDL Cholesterol, Calculated 96 mg/dL; Potassium 4.1 mmol/L (3.5-5.1); Sodium 135 mmol/L (136-145); Triglycerides 56 mg/dL (Less than 150)
[2021-01-05] MEDS: methylPREDNISolone Sod Succ/PF 125 MG/2 ML VIAL IVP SCH (08:41)
[2021-01-05] MEDS ORDERED: Chloraseptic Spray 180 ml Bottle PO PRN (09:10)
[2021-01-05] MEDS: Lidocaine Viscous Sol 2% 15 ml UD Cup SSW SCH ×2 (10:31→21:57)
[2021-01-05 16:35] LABS: SARS-CoV-2 NAA Rapid Test Not Detected (NotDetected)
[2021-01-05] MEDS ORDERED: methylPREDNISolone Sod Succ/PF 125 MG/2 ML VIAL IVP SCH (18:15)
[2021-01-05] MEDS ORDERED: Simvastatin 40 MG TAB PO SCH (21:00)
[2021-01-05] MEDS ORDERED: Atorvastatin Calcium 20 MG TAB PO SCH (21:00)
[2021-01-06 08:35] VITALS: TEMP 97.4
[2021-01-06] MEDS: Lidocaine Viscous Sol 2% 15 ml UD Cup SSW SCH (08:48)
[2021-01-06] MEDS ORDERED: methylPREDNISolone Sod Succ/PF 125 MG/2 ML VIAL IVP SCH (09:00)
[2021-01-06] MEDS ORDERED: Non-Formulary Item 1 EACH (Mirabegron [Myrbetriq] 50 MG Tab.Er.24h) PO SCH (09:00)
[2021-01-06 09:13] VITALS: BP 148/99
== END 2021-01-06 10:09 | disposition home or self-care (01) | DRG 198 ==
LOC: ERS 13:59 → NEURO 17:50 → OBSVTOIN 01-05 15:49
PROVIDERS: ADMIT Internal Medicine; ATTEND Hospitalist
DX: D86.9 Sarcoidosis, unspecified (principal); Z20.822 Contact with and (suspected) exposure to COVID-19; E78.5 Hyperlipidemia, unspecified; E78.00 Pure hypercholesterolemia, unspecified; Z96.653 Presence of artificial knee joint, bilateral; Z96.612 Presence of left artificial shoulder joint; Z96.611 Presence of right artificial shoulder joint; G47.33 Obstructive sleep apnea (adult) (pediatric); Z86.73 Personal history of transient ischemic attack (TIA), and cerebral infarction without residual deficits; Z88.6 Allergy status to analgesic agent; Z88.1 Allergy status to other antibiotic agents; Z88.0 Allergy status to penicillin; Z79.899 Other long term (current) drug therapy; Z82.5 Family history of asthma and other chronic lower respiratory diseases
CPT/HCPCS: 36415; 70450; 70496; 70498; 80048; 80053; 80061; 84484; 85025; 85610; 85652; 85730; 86140; 93005; J2930; S0028; U0002

== ENCOUNTER 2021-02-12 14:56 | Outpatient (CLI) | payer MEDICARE, OTHER | END 2021-02-12 14:57 | disposition home or self-care (01) | LOC: BICCT 14:56 → SCSCT 14:57 | PROVIDERS: ATTEND Anesthesiology Pain Medicine | DX: S32.009K Unspecified fracture of unspecified lumbar vertebra, subsequent encounter for fracture with nonunion (principal); T84.038D Mechanical loosening of other internal prosthetic joint, subsequent encounter; M51.34 Other intervertebral disc degeneration, thoracic region; M51.24 Other intervertebral disc displacement, thoracic region; M47.814 Spondylosis without myelopathy or radiculopathy, thoracic region | CPT/HCPCS: 72128; 72131 ==

== ENCOUNTER 2021-09-10 12:46 | Outpatient (CLI) | payer MEDICARE, OTHER | END 2021-09-10 12:47 | disposition home or self-care (01) | LOC: BICMAMMO 12:46 | PROVIDERS: ATTEND Family Medicine | DX: Z12.31 Encounter for screening mammogram for malignant neoplasm of breast (principal) | CPT/HCPCS: 77063; 77067 ==

== ENCOUNTER 2021-12-06 23:40 | Emergency (ER) | payer MEDICARE, OTHER ==
[2021-12-07 01:53] LABS: #Eosinphils 0.2 thou/uL (0.0-0.7); #Lymphocytes 1.7 thou/uL (1.20-3.40); #Monocytes 0.9 thou/uL (0.11-0.59); #Neutrophils 5.5 thou/uL (1.40-6.50); %Basophils 0.4 % (0.0-1.0); %Eosinophils 1.9 % (0.0-10.0); %Lymphocytes 20.4 % (21.0-51.0); %Monocytes 10.8 % (0.0-10.0); %Neutrophils 66.5 % (42.0-75.0); Hemoglobin 11.6 g/dL (12.0-16.0); Mean Corpuscular HGB CONC 31.5 g/dL (32.0-36.0); Mean Corpuscular Volume 82.6 fL (78.0-98.0); Mean Platelet Volume 6.9 fL (7.4-10.4); Platelet Count 286 thou/uL (130-400); RBC Distribution Width 16.1 % (11.5-14.5); Red Blood Cell (RBC) Count 4.47 mill/uL (4.20-5.40); White Blood Cell (WBC) Count 8.2 thou/uL (4.8-10.8)
[2021-12-07 02:12] LABS: ALT (SGPT) 12 U/L (8-55); AST (SGOT) 16 U/L (5-34); Albumin 3.8 g/dL (3.4-4.8); Alkaline Phosphatase 67 U/L (40-110); Anion Gap 11 mmol/L (10-20); BUN (Urea Nitrogen) 15 mg/dL (9.8-20.1); Bilirubin, Total 0.4 mg/dL (0.2-1.2); Calc. Creatinine Clearance 0 mL/min (70-130); Calcium 9.4 mg/dL (7.8-10.44); Carbon Dioxide 27 mmol/L (23-31); Chloride 104 mmol/L (98-107); Estimated GFR 91; Glucose 95 mg/dL (83-110); Lipase 28 U/L (8-78); Potassium 4.1 mmol/L (3.5-5.1); Protein, Total 6.8 g/dL (5.8-8.1); Sodium 138 mmol/L (136-145)
[2021-12-07] MEDS ORDERED: Morphine 4 MG/ML VIAL ONE (04:46)
[2021-12-07] MEDS ORDERED: Iopamidol-370 76% 500 ML 1 ML ONE (11:58)
== END 2021-12-07 07:30 | disposition home or self-care (01) ==
LOC: ERS 23:40
DX: R10.9 Unspecified abdominal pain (principal); E78.5 Hyperlipidemia, unspecified; E78.00 Pure hypercholesterolemia, unspecified
CPT/HCPCS: 36415; 74177; 80053; 83690; 85025; 96374; J2270; Q9967

== ENCOUNTER 2022-03-05 13:32 | Outpatient (CLI) | payer MEDICARE, OTHER | END 2022-03-05 13:33 | disposition home or self-care (01) | LOC: BICCT 13:32 | PROVIDERS: ATTEND Internal Medicine Cardiovascular Disease | DX: I70.0 Atherosclerosis of aorta (principal); I77.810 Thoracic aortic ectasia; R59.1 Generalized enlarged lymph nodes; Z98.890 Other specified postprocedural states | CPT/HCPCS: 71275; 82565 ==

== ENCOUNTER 2022-09-20 10:11 | Outpatient (CLI) | payer MEDICARE, OTHER | END 2022-09-20 10:12 | disposition home or self-care (01) | LOC: RAD 10:11 | PROVIDERS: ATTEND Nurse Practitioner Family | DX: M25.551 Pain in right hip (principal); M16.11 Unilateral primary osteoarthritis, right hip ==

== ENCOUNTER 2022-10-05 14:35 | Outpatient (CLI) | payer MEDICARE, OTHER | END 2022-10-05 14:36 | disposition home or self-care (01) | LOC: BICMAMMO 14:35 | PROVIDERS: ATTEND Family Medicine | DX: Z12.31 Encounter for screening mammogram for malignant neoplasm of breast (principal) | CPT/HCPCS: 77063; 77067 ==

== ENCOUNTER 2023-08-12 01:06 | Inpatient (IN) | payer MEDICARE, OTHER ==
[2023-08-12 02:43] VITALS: BMI 21.3
[2023-08-15 13:09] VITALS: BP 128/77; TEMP 98.1
== END 2023-08-15 14:50 | disposition home health service (06) | DRG 481 ==
LOC: SURG B 02:13
PROVIDERS: ADMIT Specialist; ATTEND Specialist
PROC: 0QS604Z Reposition Right Upper Femur with Internal Fixation Device, Open Approach (ICD-10-PCS; principal; 2023-08-12)
DX: S72.001A Fracture of unspecified part of neck of right femur, initial encounter for closed fracture (principal); D62 Acute posthemorrhagic anemia; K51.90 Ulcerative colitis, unspecified, without complications; E78.5 Hyperlipidemia, unspecified; M47.9 Spondylosis, unspecified; D86.9 Sarcoidosis, unspecified; W18.30XA Fall on same level, unspecified, initial encounter; G47.33 Obstructive sleep apnea (adult) (pediatric); Z88.0 Allergy status to penicillin; Z88.1 Allergy status to other antibiotic agents; Z88.8 Allergy status to other drugs, medicaments and biological substances; Z98.1 Arthrodesis status
CPT/HCPCS: 36415; 71045; 80048; 85025; 85610; 85730; 86850; 86900; 86901; 93005; 93010; C1713; J0360; J1100; J1170; J1650; J2272; J2405; J2704; J3010; J3490; J7050